=== PATIENT | male | born 1945 | race Caucasian/White ===

== ENCOUNTER 2016-12-01 13:55 | Emergency (ER) | payer OTHER, MEDICARE ==
[~2016-12-01] VITALS: Ht 190.5 cm; Wt 110.0 kg
[~2016-12-01 13:55] MED LIST: ALLOPURINOL300 MG PO; AMLODIPINE5 MG PO; ANTIVERT PO; CIPROFLOXACN500 MG PO; CLONIDINE0.1 MG PO; FLOMAX0.4 M1 PO; FLUOXETINE10 MG PO; FUROSEMIDE20 MG PO; GABAPENTIN300 MG PO; HEPARIN SC; HYDRALAZINE25 MG PO; HYDROCHLORO25 MG/TAB PO; HYDROCODONE/ACETAMIN PO; ISOSORB MONO60 M1 PO; ISOSORB MONO60 MG PO; LEVEMIR1000 UNITS SC; LIPITOR40 MG PO; LOSARTAN POT50 MG PO; MIRTAZAPINE15 MG PO; NOVOLIN N1000 UNITS SC; NOVOLIN R SC; NOVOLOG100 IU/1 M SC; OMEPRAZOLE20 MG PO; ONDANSETRON4 MG PO; PYRIDIUM200 MG PO; RANOLAZINE PO; TOPROL XL PO; [UNRECOGNIZED DRUG - REMARK]; catapres PO
[2016-12-01] MEDS ORDERED: TRAMADOL HYDROC50 MG PO (15:34)
[2016-12-01] MEDS ORDERED: EC-NAPROSYN500 MG PO (15:34)
[2016-12-01 15:40] VITALS: BP 130/70
== END 2016-12-01 15:55 | disposition home or self-care (01) | DRG 605 ==
LOC: ED 13:55
DX: S70.11XA Contusion of right thigh, initial encounter (principal); S70.311A Abrasion, right thigh, initial encounter; W13.3XXA Fall through floor, initial encounter; Y93.89 Activity, other specified; Y92.008 Other place in unspecified non-institutional (private) residence as the place of occurrence of the external cause

== ENCOUNTER 2017-07-23 17:43 | Emergency (ER) | payer OTHER, MEDICARE ==
[~2017-07-23] VITALS: Ht 190.5 cm; Wt 100.0 kg
[~2017-07-23 17:43] MED LIST changes: +EC-NAPROSYN500 MG PO; +TRAMADOL HYDROC50 MG PO
[2017-07-23 18:12] LABS: IMMATURE GRANULOCYTES 1.3 % (0.0-1.0); MEAN CELL VOLUME 88.2 fL CALC (80.0-100.0); MEAN CORPUSCULAR HGB CONC 32.9 g/L CALC (32.0-36.0); NEUT# 3.81 thou/uL (1.82-7.42); RED BLOOD COUNT 3.89 mill/uL (4.70-6.10); RED CELL DISTRI WIDTH 13.9 % (11.5-15.5)
[2017-07-23 18:13] LABS: HEMATOCRIT 34.3 % (39.0-50.0); HEMOGLOBIN 11.3 g/dl (14.0-18.0)
[2017-07-23 18:26] LABS: ALBUMIN 3.8 g/dL (3.2-5.0); BILIRUBIN, TOTAL 0.6 mg/dL (0.0-1.4); CREATININE 1.5 mg/dL (0.7-1.3); POTASSIUM 5.3 mmol/l (3.5-5.1); TOTAL PROTEIN 7.7 g/dL (6.3-8.2)
[2017-07-23 21:00] VITALS: BP 155/71
== END 2017-07-23 21:10 | DRG 84 ==
LOC: ED 17:43
PROVIDERS: Emergency Medicine
DX: S06.5X9A Traumatic subdural hemorrhage with loss of consciousness of unspecified duration, initial encounter (principal); S01.01XA Laceration without foreign body of scalp, initial encounter; I10 Essential (primary) hypertension; W19.XXXA Unspecified fall, initial encounter; Y92.242 Post office as the place of occurrence of the external cause; Z95.1 Presence of aortocoronary bypass graft; Z85.118 Personal history of other malignant neoplasm of bronchus and lung

== ENCOUNTER 2017-08-07 10:19 | Emergency (ER) | payer OTHER, MEDICARE ==
[~2017-08-07] VITALS: Ht 190.5 cm; Wt 109.0 kg
[2017-08-07 10:36] VITALS: BP 164/77
== END 2017-08-07 10:44 | disposition home or self-care (01) | DRG 950 ==
LOC: ED 10:19
DX: S01.00XD Unspecified open wound of scalp, subsequent encounter (principal); I10 Essential (primary) hypertension; X58.XXXD Exposure to other specified factors, subsequent encounter; Z95.1 Presence of aortocoronary bypass graft; Z85.118 Personal history of other malignant neoplasm of bronchus and lung

== ENCOUNTER 2019-08-19 08:44 | Emergency (ER) | payer OTHER, MEDICARE ==
[~2019-08-19 08:44] MED LIST changes: -FLUOXETINE10 MG PO; +FLUOXETINE20 MG PO
[2019-08-19] MEDS ORDERED: FINASTERIDE5 MG PO (08:53)
[2019-08-19] MEDS ORDERED: CARVEDILOL6.25 MG PO (08:55)
[2019-08-19] MEDS ORDERED: BACLOFEN10 MG PO (08:56)
[2019-08-19] MEDS ORDERED: ALLOPURINOL300 MG PO (08:57)
[2019-08-19 09:42] LABS: CREATININE 1.9 mg/dL (0.7-1.3)
[2019-08-19 09:44] LABS: HEMATOCRIT 35.9 % (39.0-50.0); HEMOGLOBIN 11.5 g/dl (14.0-18.0); IMMATURE GRANULOCYTES 0.8 % (0.0-5.0); MEAN CELL VOLUME 89.8 fL CALC (80.0-100.0); MEAN CORPUSCULAR HGB 28.8 pG CALC (26.0-32.0); NEUT# 5.03 thou/uL (1.82-7.42); POTASSIUM 4.1 mmol/l (3.5-5.1); RED CELL DISTRI WIDTH 14.7 % (11.5-15.5)
[2019-08-19] MEDS ORDERED: HYDROCO/APAP1 TA9 PO ×2 (12:50)
[2019-08-19] MEDS ORDERED: CEPHALEXIN500 M1 PO (13:06)
[2019-08-19 13:24] VITALS: BP 193/93
== END 2019-08-19 13:24 | disposition home or self-care (01) | DRG 563 ==
LOC: ED 08:44
PROVIDERS: Family Medicine
PROC: 0SSQXZZ Reposition Left Toe Phalangeal Joint, External Approach (ICD-10-PCS; principal; 2019-08-19)
DX: S93.115A Dislocation of interphalangeal joint of left lesser toe(s), initial encounter (principal); S92.252A Displaced fracture of navicular [scaphoid] of left foot, initial encounter for closed fracture; S92.222A Displaced fracture of lateral cuneiform of left foot, initial encounter for closed fracture; S92.412A Displaced fracture of proximal phalanx of left great toe, initial encounter for closed fracture; L03.116 Cellulitis of left lower limb; M25.461 Effusion, right knee; E11.9 Type 2 diabetes mellitus without complications; I10 Essential (primary) hypertension; W01.0XXA Fall on same level from slipping, tripping and stumbling without subsequent striking against object, initial encounter; Y92.002 Bathroom of unspecified non-institutional (private) residence as the place of occurrence of the external cause; Z79.4 Long term (current) use of insulin

== ENCOUNTER 2019-10-25 21:24 | Inpatient (IN) | payer OTHER, MEDICARE ==
[~2019-10-25] VITALS: Ht 182.9 cm; Wt 94.1 kg
[~2019-10-25 21:24] MED LIST changes: +BACLOFEN10 MG PO; +CARVEDILOL6.25 MG PO; +CEPHALEXIN500 M1 PO; +FINASTERIDE5 MG PO; +HYDROCO/APAP1 TA9 PO
[2019-10-25 22:02] LABS: HEMATOCRIT 40.6 % (39.0-50.0); HEMOGLOBIN 12.9 g/dl (14.0-18.0); IMMATURE GRANULOCYTES 0.3 % (0.0-5.0); MEAN CELL VOLUME 89.6 fL CALC (80.0-100.0); MEAN CORPUSCULAR HGB 28.5 pG CALC (26.0-32.0); MEAN CORPUSCULAR HGB CONC 31.8 g/dL CAL (32.0-36.0); NEUT# 3.94 thou/uL (1.82-7.42); RED BLOOD COUNT 4.53 mill/uL (4.70-6.10); RED CELL DISTRI WIDTH 15.5 % (11.5-15.5)
[2019-10-25 22:20] LABS: ALBUMIN 3.8 g/dL (3.2-5.0); BILIRUBIN, TOTAL 0.5 mg/dL (0.0-1.4); POTASSIUM 5.1 mmol/l (3.5-5.1); TOTAL PROTEIN 6.8 g/dL (6.3-8.2)
[2019-10-25 22:22] LABS: ACT PARTIAL THROMBO TIME 23.7 SECONDS (20.0-32.5); INTERNATIONAL NORMALIZED RATIO 1.1 RATIO (0.7-1.3); PROTHROMBIN TIME 11.1 SECONDS (9.0-12.5)
[2019-10-26] VITALS (29 sets, daily range): BP systolic 121–215; BP diastolic 60–139
[2019-10-26 03:05] LABS: HEMATOCRIT 40.1 % (39.0-50.0); HEMOGLOBIN 12.6 g/dl (14.0-18.0); IMMATURE GRANULOCYTES 0.3 % (0.0-5.0); MEAN CELL VOLUME 90.1 fL CALC (80.0-100.0); MEAN CORPUSCULAR HGB 28.3 pG CALC (26.0-32.0); MEAN CORPUSCULAR HGB CONC 31.4 g/dL CAL (32.0-36.0); NEUT# 3.72 thou/uL (1.82-7.42); RED BLOOD COUNT 4.45 mill/uL (4.70-6.10); RED CELL DISTRI WIDTH 15.5 % (11.5-15.5)
[2019-10-26 03:29] LABS: ALBUMIN 3.5 g/dL (3.2-5.0); BILIRUBIN, TOTAL 0.3 mg/dL (0.0-1.4); CREATININE 1.8 mg/dL (0.7-1.3); POTASSIUM 4.5 mmol/l (3.5-5.1); TOTAL PROTEIN 6.5 g/dL (6.3-8.2)
[2019-10-26] MEDS ORDERED: ISOSORB MONO60 M1 PO (14:06)
[2019-10-26] MEDS ORDERED: PRAVASTATIN80 MG PO (14:07)
[2019-10-26] MEDS ORDERED: OMEPRAZOLE DR20 MG PO (14:07)
[2019-10-26] MEDS ORDERED: CLONIDINE0.2 MG PO (14:09)
[2019-10-26] MEDS ORDERED: RANOLAZINE ER500 MG PO (14:10)
[2019-10-26] MEDS ORDERED: PROZAC20 M1 PO (14:12)
[2019-10-26] MEDS ORDERED: TAMSULOSIN0.4 MG PO (14:13)
[2019-10-26] MEDS ORDERED: ATORVASTATIN CA80 MG PO (14:14)
[2019-10-26] MEDS ORDERED: LOSARTAN POTAS100 MG PO (14:15)
[2019-10-26] MEDS ORDERED: FINASTERIDE5 MG PO (14:15)
[2019-10-26] MEDS ORDERED: COREG12.5 MG PO (14:16)
[2019-10-26] MEDS ORDERED: ZYLOPRIM300 MG PO (14:22)
[2019-10-26] MEDS ORDERED: NORVASC10 M1 PO (14:23)
[2019-10-26] MEDS ORDERED: ASPIRIN 8181 MG PO (14:50)
[2019-10-27] VITALS (27 sets, daily range): BP systolic 118–199; BP diastolic 62–102
[2019-10-27 10:42] LABS: URINE BILIRUBIN - DIPSTICK NEGATIVE (NEGATIVE); URINE BLOOD DIPSTICK NEGATIVE (NEGATIVE); URINE COLOR YELLOW; URINE GLUCOSE - DIPSTICK 250 mg/dL (NEGATIVE); URINE KETONE TRACE mg/dL (NEGATIVE); URINE LEUK ESTERASE NEGATIVE (NEGATIVE); URINE NITRITE - DIPSTICK NEGATIVE (Negative); URINE PROTEIN - DIPSTICK 100 mg/dL (NEG-TRACE); URINE UROBILINOGEN - DIPSTICK 0.2 E.U./dL (0.2)
[2019-10-27 10:52] LABS: URINE EPITHELIAL CELLS FEW EPI/hpf (0-FEW); URINE MUCUS MODERATE hpf (NONE-FEW)
[2019-10-28 00:05] VITALS: BP 154/83
[2019-10-28 04:08] VITALS: BP 151/82
[2019-10-28 05:32] LABS: HEMATOCRIT 37.3 % (39.0-50.0); HEMOGLOBIN 11.6 g/dl (14.0-18.0); IMMATURE GRANULOCYTES 0.3 % (0.0-5.0); MEAN CELL VOLUME 90.1 fL CALC (80.0-100.0); MEAN CORPUSCULAR HGB CONC 31.1 g/dL CAL (32.0-36.0); NEUT# 3.6 thou/uL (1.82-7.42); RED BLOOD COUNT 4.14 mill/uL (4.70-6.10); RED CELL DISTRI WIDTH 15.6 % (11.5-15.5)
[2019-10-28 08:50] VITALS: BP 168/86
[2019-10-28 11:00] VITALS: BP 146/71
[2019-10-28] MEDS ORDERED: TAMSULOSIN0.4 MG PO (11:57)
[2019-10-28] MEDS ORDERED: ATORVASTATIN CA80 MG PO (11:57)
[2019-10-28] MEDS ORDERED: RANOLAZINE ER500 MG PO (11:57)
[2019-10-28] MEDS ORDERED: NORVASC10 M1 PO ×2 (11:58)
[2019-10-28] MEDS ORDERED: ISOSORB MONO60 M1 PO (11:58)
[2019-10-28] MEDS ORDERED: ASPIRIN 8181 MG PO (11:58)
[2019-10-28] MEDS ORDERED: FINASTERIDE5 MG PO (11:59)
[2019-10-28] MEDS ORDERED: PROZAC20 M1 PO (11:59)
[2019-10-28] MEDS ORDERED: OMEPRAZOLE DR20 MG PO (11:59)
[2019-10-28] MEDS ORDERED: ZYLOPRIM300 MG PO (11:59)
[2019-10-28] MEDS ORDERED: AMLODIPINE BESYL5 MG PO (12:16)
[2019-10-28] MEDS ORDERED: LOSARTAN POTAS100 MG PO (12:16)
[2019-10-28] MEDS ORDERED: APRESOLINE25 MG/TAB PO (12:16)
[2019-10-28] MEDS ORDERED: COREG12.5 MG PO (12:16)
[2019-10-28] MEDS ORDERED: CLONIDINE0.2 MG PO (12:16)
[2019-10-28 14:32] VITALS: BP 146/71
== END 2019-10-28 13:44 | disposition home or self-care (01) | DRG 305 ==
LOC: ED 21:24 → ED-I 23:04 → ED 23:23 → ICU 23:24 → MS2 10-27 17:10
PROVIDERS: ADMIT Internal Medicine; ATTEND Internal Medicine
DX: I16.0 Hypertensive urgency (principal); N17.9 Acute kidney failure, unspecified; I12.9 Hypertensive chronic kidney disease with stage 1 through stage 4 chronic kidney disease, or unspecified chronic kidney disease; E11.22 Type 2 diabetes mellitus with diabetic chronic kidney disease; N18.3 Chronic kidney disease, stage 3 (moderate); I49.3 Ventricular premature depolarization; I25.10 Atherosclerotic heart disease of native coronary artery without angina pectoris; S92.902D Unspecified fracture of left foot, subsequent encounter for fracture with routine healing; I25.2 Old myocardial infarction; T46.5X6A Underdosing of other antihypertensive drugs, initial encounter; X58.XXXD Exposure to other specified factors, subsequent encounter; Z91.128 Patient's intentional underdosing of medication regimen for other reason; Z90.2 Acquired absence of lung [part of]; Z91.81 History of falling; Z87.891 Personal history of nicotine dependence; Z79.4 Long term (current) use of insulin; Z85.118 Personal history of other malignant neoplasm of bronchus and lung; Z95.1 Presence of aortocoronary bypass graft; Z20.828 Contact with and (suspected) exposure to other viral communicable diseases
CPT/HCPCS: J1650

== ENCOUNTER 2019-11-09 05:45 | Observation (INO) | payer OTHER, MEDICARE ==
[~2019-11-09] VITALS: Ht 190.5 cm; Wt 99.3 kg
[~2019-11-09 05:45] MED LIST changes: +AMLODIPINE BESYL5 MG PO; +APRESOLINE25 MG/TAB PO; +ASPIRIN 8181 MG PO; +ATORVASTATIN CA80 MG PO; +CLONIDINE0.2 MG PO; +COREG12.5 MG PO; +LOSARTAN POTAS100 MG PO; +NORVASC10 M1 PO; +OMEPRAZOLE DR20 MG PO; +PRAVASTATIN80 MG PO; +PROZAC20 M1 PO; +RANOLAZINE ER500 MG PO; +TAMSULOSIN0.4 MG PO; +ZYLOPRIM300 MG PO
--- NOTE | 2019-11-09 07:00 | NUR ---
REPORT RECIEVED FROM MARCEL RN; PT RESTING ON STRETCHER; DENIES ANY PAIN OR DISCOMFORT AT THIS TIME; PT ADVISED OF POC AND WAIT TIME; VSS; WILL CONTINUE TO MONITOR
--- NOTE | 2019-11-09 07:20 | NUR ---
DR BAEZ AT BEDSIDE; REDUCTION OF LEFT SECOND TOE; LACERATION REPAIN TO FOURTH LEFT TOE; PT TOLERATED WELL; DRESSSING APPLIEED; GURROLA BOOT APPLIED; PT UNABLE TO BARE WEIGHT; PT ADVISED ON PENDING ADMISSION
--- NOTE | 2019-11-09 08:20 | NUR ---
PT RESTING ON STRETCHER; NO S/S OF DISTRESS NOTED; PT ADVISED OF CONTINUED WAIT TIME; VSS; WILL CONTINUE TO MONITOR
--- NOTE | 2019-11-09 09:20 | NUR ---
PT RESTING ON STRETCHER; NO S/S OF DISTRESS NOTED; WILL CONTINUE TO MONITOR
[2019-11-09 09:26] LABS: HEMOGLOBIN 11.9 g/dl (14.0-18.0); IMMATURE GRANULOCYTES 0.5 % (0.0-5.0); MEAN CELL VOLUME 88.9 fL CALC (80.0-100.0); MEAN CORPUSCULAR HGB 28.6 pG CALC (26.0-32.0); MEAN CORPUSCULAR HGB CONC 32.2 g/dL CAL (32.0-36.0); NEUT# 3.49 thou/uL (1.82-7.42); RED BLOOD COUNT 4.16 mill/uL (4.70-6.10); RED CELL DISTRI WIDTH 14.7 % (11.5-15.5)
[2019-11-09] MEDS ORDERED: NOVOLIN R100 UNIT/1 IN (09:42)
--- NOTE | 2019-11-09 10:20 | NUR ---
PT RESTING ON STRETCHER; NO S/S OF DISTRESS NOTED; ADVISED OF CONTINUED WAIT TIME; WILL CONTINUE TO MONITOR
--- NOTE | 2019-11-09 10:30 | NUR ---
REPORT REC FROM LONNIE LOERA
--- NOTE | 2019-11-09 10:43 | NUR ---
PT ARRIVED VIA STRETCHER ACCOMPANIED BY LONNIE LOERA. PT A&O X3. NO DISTRESS NOTED. BOOT IN PLACE TO LT LEG. LT FLANK/HIP BRUISING NOTED. PER CONVERSATION PT LIVES ALONE AND HAS HAD MULTIPLE FALLS SINCE LAST D/C [facility]. [facility] BUT REPORTS TO NEVER HAVE BEEN ESTABLISHED. PT REPORTS PAIN 7/10 WHEN MOVING OR WHEN WEIGHT IS PLACED WITH LT LEG. ORIENTED PT TO ROOM. URINAL SET AT BEDSIDE. ASSESSMENT COMPLETED. CALL LIGHT IN REACH. CONTINUE TO MONITOR.
--- NOTE | 2019-11-09 10:45 | NUR ---
Admission Note Report Given to: TED BERG Transported by: Wheelchair X Stretcher Transported with: X Nurse Transporter X Patent IV O2 Dust Control Engineer Location: ICU X MS2
[2019-11-09 15:00] VITALS: BP 161/81
[2019-11-09 17:00] LABS: INTERNATIONAL NORMALIZED RATIO 1.1 RATIO (0.7-1.3); PROTHROMBIN TIME 10.7 SECONDS (9.0-12.5)
--- NOTE | 2019-11-09 17:28 | NUR ---
PT SITTING IN BED EATING DINNER, STATES PAIN IS MINIMAL AT THIS TIME AND DOES NOT NEED ANYTHING FOR PAIN. CALL LIGHT IN REACH. CONTINUE TO MONITOR.
[2019-11-09 19:10] VITALS: BP 166/75
--- NOTE | 2019-11-09 20:10 | NUR ---
PT RESTING IN BED, NO SIGNS OF DISTRESS NOTED, RESP EVEN AND UNLABORED. PT ALERT AND ORIENTED X3, DISCUSSED POC, PT ONLY C/O AT THIS TIME. IS HEARTBURN. PT MEDICATED WITH MYLANTA. DRESSING TO LLE CDI, TOES ARE PINK,WARM AND CAPILLARY REFILL SLUGGISH BUT PRESENT. ASSESSMENT COMPLETED, CALL LIGHT IN REACH,CONTINUE TO MONITOR.
[2019-11-09 23:35] VITALS: BP 140/75
--- NOTE | 2019-11-10 00:01 | NUR ---
PT RESTING IN BED, NO SIGNS OF DISTRESS NOTED, RESP EVEN AND UNLABORED. PT WATCHING TV, VOICES NO NEEDS OR COMPLAINTS AT THIS TIME. CALL LIGHT IN REACH,CONTINUE TO MONITOR.
[2019-11-10 05:30] VITALS: BP 154/79
[2019-11-10 05:33] VITALS: BP 142/72
--- NOTE | 2019-11-10 06:18 | NUR ---
PT RESTING IN BED, NO SIGNS OF DISTRESS NOTED, RESP EVEN AND UNLABORED, CALL LIGHT IN REACH,CONTINUE TO MONITOR.
[2019-11-10 07:15] VITALS: BP 170/71
--- NOTE | 2019-11-10 07:15 | NUR ---
PT LAYING IN BED. A&O X3. NO DISTRESS NOTED. PT REPORTS PAIN 5/10. LT FOOT INSPECTED AND CIRCULATION ASSESSED, NO CYANOSIS NOTED. LT LEG ELEVATED ON PILLOW. NO OTHER NEEDS AT THIS TIME. ASSESSMENT COMPLETED. DISCUSSED POC. CALL LIGHT IN REACH. CONTINUE TO MONITOR.
[2019-11-10 11:09] VITALS: BP 147/77
--- NOTE | 2019-11-10 11:11 | NUR ---
PT WAS SEEN TODAY FOR GT. HE WAS INDEP ON TRANSITIONING FROM SUPINE TO SITTING ON EDGE OF BED WITH MODERATE DIFFICULTY. PT WAS GIVEN INSTRUCTIONS AND CGA TO SIT>STAND WHILE HOLDING ONTO BED RAIL THEN ONTO THE WALKER. HE THEN AMBULATED FROM ONE SIDE OF THE BED TO THE OTHER WITH ANKLE BOOT ON THE LEFT AND A RW. PT REPORTED INTOLERANCE TO AMB AND REQUESTED TO SIT DOWN. AFTERWARDS, PT BEGAN VOMITTING LIQUID HOWEVER, DENIES DIZZINESS OR LIGHT-HEADEDNESS. VS WERE WNL. PT REPORTS FEELING BETTER AND REQUESTED TO RETURN TO BED. HIS AMPAC SCORE IS UNCHANGED AND WILL STILL BENEFIT FROM ECF OR IPT DUE TO HIGH RISK FOR FALLS AND LIMITED FUNCTIONAL INDEPENDENCE. PT WAS STABLE AND RESTING HOOK LYING ON BED WHEN THERAPIST LEFT. NO ADVERSE REACTIONS REPORTED.
--- NOTE | 2019-11-10 11:40 | NUR ---
PT REORTS NAUSEA AND REQUESTS PRN ANTIEMETIC, PT MEDICATED WITH PRN ZOFRAN 4MG IVP AT THIS TIME;WILL CONTINUE TO MONITOR FOR EFFECTIVENESS
--- NOTE | 2019-11-10 12:26 | NUR ---
PT SITTING IN RECLINER. NO DISTRESS OR NEEDS AT THIS TIME. CALL LOGHT IN REACH. CONTINUE TO MONITOR.
[2019-11-10 15:10] VITALS: BP 131/76
[2019-11-10 19:19] VITALS: BP 123/70
--- NOTE | 2019-11-10 21:00 | NUR ---
PT RESTING IN BED. PHYSICAL ASSESMENT COMPLETE. REPORTS PAIN TO L FOOT 10, PRN ULTRAM ADMINISTERED. SCHEDULED MEDICATIONS ADMINISTERED. SEE E-MAR. PLAN OF CARE REVIEWED. PT VERBALIZES UNDERSTANDING AND DENIES QUESTIONS. PT DENIES FURTHER NEEDS AT THIS TIME. CALL ROONEY WITHIN REACH, AGREES TO CALL PRN.
--- NOTE | 2019-11-10 21:30 | NUR ---
ASSITED PT UP TO BSC, PT PASSED EXTRA-LARGE SOLID BM, ASSISTED BACK TO BED BY Lawrence VAZQUEZ CNA. CALL ROONEY WITHIN REACH, AGREES TO CALL PRN.
--- NOTE | 2019-11-10 22:45 | NUR ---
PT ASSISTED UP TO BSC BY Lawrence HERNADEZA, PASSED LARGE SOFT STOOL, ASSISTED BACK TO BED BY Lawrence HERNADEZA. CALL ROONEY WITHIN REACH, AGREES TO CALL PRN.
--- NOTE | 2019-11-10 23:26 | NUR ---
PT ASSISTED UP TO BSC, PT PASSED MODERATE AMOUNT LIQUID STOOL, BUTTOCKS IS BECOMING REDDENED, SKIN BLANCHABLE AND INTACT. PT ASSISTED BACK TO BED. CALL ROONEY WITHIN REACH, AGREES TO CALL PRN.
--- NOTE | 2019-11-11 00:35 | NUR ---
PT LAYING IN BED, APPAERS TO BE SLEEPING COMFORTABLY, NO APPARENT DISTRESS. RESPIRATIONS REGULAR AND UNLABORED. CALL ROONEY REMAINS WITHIN REACH.
[2019-11-11 04:05] VITALS: BP 149/74
[2019-11-11 04:37] LABS: HEMATOCRIT 34.6 % (39.0-50.0); HEMOGLOBIN 10.9 g/dl (14.0-18.0); MEAN CELL VOLUME 89.9 fL CALC (80.0-100.0); MEAN CORPUSCULAR HGB 28.3 pG CALC (26.0-32.0); MEAN CORPUSCULAR HGB CONC 31.5 g/dL CAL (32.0-36.0); RED BLOOD COUNT 3.85 mill/uL (4.70-6.10); RED CELL DISTRI WIDTH 15.2 % (11.5-15.5)
[2019-11-11 05:02] LABS: CREATININE 1.9 mg/dL (0.7-1.3); MAGNESIUM 2.4 mg/dL (1.6-2.3)
[2019-11-11 05:09] LABS: POTASSIUM 5.8 mmol/l (3.5-5.1)
[2019-11-11 07:39] VITALS: BP 157/83
--- NOTE | 2019-11-11 07:39 | NUR ---
PT SITTING IN BED. A&O X3. NO DISTRESS NOTED. PT DENIES ANY PAIN AT THIS TIME. CIRCULATION TO TOES ASSESSED, NO CYANOSIS. NO OTHER NEEDS AT THIS TIME. ASSESSMENT COMPLETED AT THIS TIME. DISCUSSED POC. CALL LIGHT IN REACH .CONTINUE TO MONITOR.
[2019-11-11 09:10] VITALS: BP 157/83
--- NOTE | 2019-11-11 10:03 | NUR ---
PT NOTE Pt was supine in bed as entered room. Pt agreed to participate in therapy session. Supine>sit independent using hand rails to propell self to a seated position. Static sitting balance executes well, no dizziness noted as he was moved into a seated position. Sit>stand independent, VC for correct hand placement as he ascends to a standing posistion. Staic standing balance adequate, no LOB noted, slight dizziness. Pt. sat down for a min, dizziness subsided, executed 5 sit>stands, no dizziness noted. weight shifting pt executed well. Stand> sit independnt, sit>supine MIN A w/ lower extremity over bed side. AMPAC 6 score unchanged 15. call mónica vyas by pt. side as exited room.
[2019-11-11] MEDS ORDERED: KAYEXALATE15 GM/60 M PO (11:32)
[2019-11-11] MEDS ORDERED: ULTRAM50 MG PO (11:32)
--- NOTE | 2019-11-11 11:55 | NUR ---
Pt refused therapy due to being tired and feeling nauseous.
--- NOTE | 2019-11-11 13:54 | NUR ---
Discharge instructions given. Patient verbalizes understanding of same. [facility] All belongings sent with pt.
--- NOTE | 2019-11-11 14:49 | NUR ---
CALLED [facility] WITH ATTEMPT TO GIVE REPORT, CALL BACK INFORMATION GIVEN TO CENTRALIZED TRAFFIC CONTROL OPERATOR STAFF, ACCEPTING NURSE TO CALL BACK.
== END 2019-11-11 13:54 | DRG 566 ==
LOC: ED 06:07 → MS2 08:05 → ED-I 08:05 → MS2 11-11 13:54
PROVIDERS: Family Medicine; Nurse Practitioner; ADMIT Internal Medicine; ATTEND Internal Medicine
PROC: 0HQNXZZ Repair Left Foot Skin, External Approach (ICD-10-PCS; principal; 2019-11-09)
DX: M23.52 Chronic instability of knee, left knee (principal); M17.12 Unilateral primary osteoarthritis, left knee; R26.89 Other abnormalities of gait and mobility; S91.115A Laceration without foreign body of left lesser toe(s) without damage to nail, initial encounter; S92.412A Displaced fracture of proximal phalanx of left great toe, initial encounter for closed fracture; S92.512A Displaced fracture of proximal phalanx of left lesser toe(s), initial encounter for closed fracture; I16.0 Hypertensive urgency; I12.9 Hypertensive chronic kidney disease with stage 1 through stage 4 chronic kidney disease, or unspecified chronic kidney disease; E11.22 Type 2 diabetes mellitus with diabetic chronic kidney disease; N18.9 Chronic kidney disease, unspecified; I25.10 Atherosclerotic heart disease of native coronary artery without angina pectoris; E87.5 Hyperkalemia; W18.30XA Fall on same level, unspecified, initial encounter; Y92.009 Unspecified place in unspecified non-institutional (private) residence as the place of occurrence of the external cause; Z91.81 History of falling; Z85.118 Personal history of other malignant neoplasm of bronchus and lung; Z87.891 Personal history of nicotine dependence; Z90.2 Acquired absence of lung [part of]; Z95.1 Presence of aortocoronary bypass graft; Z79.4 Long term (current) use of insulin; Z20.828 Contact with and (suspected) exposure to other viral communicable diseases
CPT/HCPCS: G0378; J1650

== ENCOUNTER 2020-05-17 12:54 | Observation (INO) | payer OTHER, MEDICARE ==
[~2020-05-17] VITALS: Ht 190.5 cm; Wt 92.0 kg
[~2020-05-17 12:54] MED LIST changes: +KAYEXALATE15 GM/60 M PO; +NOVOLIN R100 UNIT/1 IN; +ULTRAM50 MG PO
--- NOTE | 2020-05-17 12:54 | NUR ---
PT TO ROOM 15 VIA EMS. BEDSIDE TRIAGE COMPLETED
[2020-05-17 13:42] LABS: HEMATOCRIT 34.2 % (39.0-50.0); HEMOGLOBIN 10.9 g/dl (14.0-18.0); IMMATURE GRANULOCYTES 0.5 % (0.0-5.0); MEAN CELL VOLUME 92.4 fL CALC (80.0-100.0); MEAN CORPUSCULAR HGB 29.5 pG CALC (26.0-32.0); MEAN CORPUSCULAR HGB CONC 31.9 g/dL CAL (32.0-36.0); NEUT# 4.45 thou/uL (1.82-7.42); RED BLOOD COUNT 3.7 mill/uL (4.70-6.10); RED CELL DISTRI WIDTH 14.2 % (11.5-15.5)
[2020-05-17 13:54] LABS: ALBUMIN 3.5 g/dL (3.2-5.0); ALKALINE PHOSPHATASE 95 u/l (38-126); AMYLASE 43 u/l (30-110); BUN 27 mg/dL (8-23); BUN/CREATININE RATIO 20 (12-20 (CALC)); CHLORIDE 99 mmol/l (95-108); CREATININE 1.4 mg/dL (0.7-1.3); GFR 50 ML/MIN (>=60 (CALC)); GFR FOR AFR.AMER. 60 ML/MIN (>=60 (CALC)); LIPASE 27 u/l (23-300); SGOT/AST 13 u/l (19-48); SODIUM 134 mmol/l (137-146); TOTAL PROTEIN 6.5 g/dL (6.3-8.2)
[2020-05-17 13:55] LABS: URINE BILIRUBIN - DIPSTICK NEGATIVE (NEGATIVE); URINE BLOOD DIPSTICK NEGATIVE (NEGATIVE); URINE COLOR YELLOW; URINE GLUCOSE - DIPSTICK NEGATIVE (NEGATIVE); URINE KETONE NEGATIVE (NEGATIVE); URINE LEUK ESTERASE NEGATIVE (NEGATIVE); URINE NITRITE - DIPSTICK NEGATIVE (Negative); URINE PROTEIN - DIPSTICK 100 mg/dL (NEG-TRACE); URINE UROBILINOGEN - DIPSTICK 0.2 E.U./dL (0.2)
[2020-05-17 13:57] LABS: URINE EPITHELIAL CELLS FEW EPI/hpf (0-FEW); URINE MUCUS MODERATE hpf (NONE-FEW)
--- NOTE | 2020-05-17 14:00 | NUR ---
ATTENPTED TO OBTAIN MED RECONCILIATION. PATIENT STATES I TAKE ALOT OF MEDS BUT HAVE NO IDEA WHAT. PHARMACY CONSULT IN
[2020-05-17 14:09] LABS: D-DIMER 0.61 mg/L (0.19-0.60)
[2020-05-17 14:10] LABS: ANION GAP 10 (6-22 (CALC)); BILIRUBIN, TOTAL 0.6 mg/dL (0.0-1.4); CARBON DIOXIDE 29 mmol/l (22-30); POTASSIUM 4.2 mmol/l (3.5-5.1)
[2020-05-17 14:20] LABS: ACT PARTIAL THROMBO TIME 24.3 SECONDS (20.0-32.5); INTERNATIONAL NORMALIZED RATIO 1.1 RATIO (0.7-1.3)
--- NOTE | 2020-05-17 15:00 | NUR ---
PATIENT RESTING,NO DISTRESS, CALL ROONEY IN REACH
--- NOTE | 2020-05-17 15:44 | NUR ---
REPOSITIONED,AWARE OF PENDING ADMISSION.
--- NOTE | 2020-05-17 17:16 | NUR ---
REPORT CALLED TO TAWNY IN SBAR FORMAT RECEIVING NURSE.
--- NOTE | 2020-05-17 17:27 | NUR ---
TRANSFERRED TO ROOM 269. STABLE UPON TRANSFER.
[2020-05-17 17:39] VITALS: BP 205/80
--- NOTE | 2020-05-17 18:14 | NUR ---
PT ARRIVED TO MED-SURG ROOM#269 VIA STRETCHER IN STABLE CONDITION ACCOMPANIED BY NURSE PEÑA;PT AMBULATED TO BED WITH MINIMAL ASSISTANCE;PT IS A&O X3;VS AND ASSESSMENT WERE COMPLETED;BP ON ARRIVAL TO FLOOR WAS 203/100;IGLESIA ISSA WAS NOTIFIED AND AWARE;#20G IV IN LH IS SL, PATENT AND FREE OF COMPLICATIONS;HEART SOUNDS ARE REGULAR IN RATE AND RHYTHM;TELE IS IN PLACE READING SR @84BPM;LUNG SOUNDS ARE CLEAR;PT HAS HAD LEFT LUNG REMOVED;RESPIRATIONS ARE EVEN AND UNLABORED ON RA;FALL AND ALLERGY ARM BANDS WERE PLACED ON PT;PT ORIENTED TO CALL ROONEY AND ROOM;SAFETY PRECAUTIONS IN PLACE;CALL LIGHT WITHIN REACH;BED IN LOWEST POSITION;WILL CONTINUE TO MONITOR.
[2020-05-17 19:05] VITALS: BP 167/83
--- NOTE | 2020-05-17 19:45 | NUR ---
PT COMPLAINING OF CHEST PAIN, REPORTING IT IS MUSCULAR IN NATURE NOT CARDIAC. PT IS NEGATIVE FOR ANY CARDIAC SYMPTOMS AT THIS TIME. TELE 90'S SR WITH PVC. LINEN SORTER TOBACCO PACKING MACHINE OPERATOR, SATHISH DEL ANGEL, NOTIFIED OF CHEST PAIN AND THAT PT HAS ONLY TYLENOL NEEDED FOR PAIN AT THIS TIME. PER TOBACCO PACKING MACHINE OPERATOR SHE WILL REVIEW PT MEDICATIONS AND ADD NEW MEDICATIONS APPROPRIATE. WILL MONITOR.
[2020-05-17 20:58] VITALS: BP 169/88
--- NOTE | 2020-05-17 21:55 | NUR ---
ADMINSTERED FLEXERIL AND TYLENOL WITH HS MEDS. PT INDICATED THAT THE PAIN IS EASING OFF AND THAT THE PAIN IS MORE MANAGABLE AT THIS TIME. PT CONTINUES TO NOT SHOW ANY S/S OF CARDIAC COMPLICATIONS. BREATHING IS EVEN AND UNLABORED. CTA. L LUNG REMOVED SOME TIME AGO. UPON HEART AUSCULTATION NOTED A MURMUR AND A SLIGHT IRREGULARITY TO THE RHYTHM. PT INDICATED HE HAS HAD THE MURMUR AND IRREGULARITY FOR YEARS. TELE IS NOT PICKING UP HEART IRREGULARITY. WILL CONTINUE TO MONITOR. SAFETY PRECAUTIONS IN PLACE. BED IN LOWEST POSITION. CALL LIGHT WITHIN REACH.
[2020-05-17 22:05] VITALS: BP 182/97
--- NOTE | 2020-05-17 23:56 | NUR ---
PT IN BED WATCHING TELEVISION. IV APRESOLINE GIVEN FOR B/P 182/97. PT TOLERATED WELL. WILL MONITOR B/P THROUGHOUT THE SHIFT. SPOKE WITH RECTIFYING ATTENDANT WHO GAVE AN ORDER FOR APRESOLINE PARAMETERS. SAFETY PRECAUTIONS IN PLACE, BED IN LOW POSITION, CALL LIGHT WITHIN REACH.
[2020-05-18 00:10] VITALS: BP 175/87
--- NOTE | 2020-05-18 01:36 | NUR ---
PT REMAINS AWAKE IN HIS ROOM WATCHING TV. PT CALLED TO NURSING STATTION AT APPROXIMATLY 0120 AND STATED HE NEEDED HIS BLOOD SUGAR CHECK DONE, HE INDICATED HE WAS FEELING HYPOGLYCEMIC. BS CHECKED AND NOTED A BS OF 66. ASSIGNED TICKETING AGENT GAVE PT SOME ORANGE JUICE, WILL CHECK BS AGAIN THIS SHIFT FOR EFFECTIVENESS OF ORANGE JUICE.
[2020-05-18 04:05] VITALS: BP 169/81
--- NOTE | 2020-05-18 04:26 | NUR ---
PT LYING IN BED WITH EYES CLOSED. NO COMPLAINTS VOICED AT THIS TIME. BREATHING IS EVEN AND UNLABORED. NO S/S OF DISTRESS NOTED. SAFETY AND FALL PRECAUTIONS IN PLACE. WILL MONITOR.
[2020-05-18 06:08] LABS: HEMATOCRIT 36.5 % (39.0-50.0); IMMATURE GRANULOCYTES 0.2 % (0.0-5.0); MEAN CELL VOLUME 90.1 fL CALC (80.0-100.0); MEAN CORPUSCULAR HGB 29.6 pG CALC (26.0-32.0); MEAN CORPUSCULAR HGB CONC 32.9 g/dL CAL (32.0-36.0); NEUT# 4.74 thou/uL (1.82-7.42); RED BLOOD COUNT 4.05 mill/uL (4.70-6.10); RED CELL DISTRI WIDTH 13.9 % (11.5-15.5)
[2020-05-18 06:28] LABS: ALBUMIN 3.2 g/dL (3.2-5.0); ALKALINE PHOSPHATASE 100 u/l (38-126); ANION GAP 10 (6-22 (CALC)); BILIRUBIN, TOTAL 0.5 mg/dL (0.0-1.4); BUN 21 mg/dL (8-23); BUN/CREATININE RATIO 18 (12-20 (CALC)); CALCULATED LDLCHOLESTEROL 39 mg/dL (62-129 (CALC)); CARBON DIOXIDE 27 mmol/l (22-30); CHLORIDE 101 mmol/l (95-108); CHOLESTEROL HDL RATIO 2.9 (<4.4 (CALC)); CREATININE 1.1 mg/dL (0.7-1.3); GFR > 60 ML/MIN (>=60 (CALC)); GFR FOR AFR.AMER. > 60 ML/MIN (>=60 (CALC)); HDL CHOLESTEROL 36 mg/dL (>=40); MAGNESIUM 1.9 mg/dL (1.6-2.3); SGOT/AST 13 u/l (19-48); SODIUM 135 mmol/l (137-146); TOTAL CHOLESTEROL 104 mg/dl (0-199); TOTAL PROTEIN 6.1 g/dL (6.3-8.2); TOTAL TRIGLYCERIDES 148 mg/dl (30-149); VLDL CHOLESTROL 30 mg/dl (0-38 (CALC))
[2020-05-18 07:27] VITALS: BP 160/88
--- NOTE | 2020-05-18 07:38 | NUR ---
PATIENT LAYING IN BED ALERT AND ORIENTED X 3. DENIES ANY PAIN STATED PAIN WAS A 0 ON SCALE OF 1-10 PATIENT BP AT THIS TIME WAS 160/88 AND SCHEDULED MORNING BLOOD PRESSURE MEDICATIONS GIVEN EARLY SEE MAR. SIDERAILS ARE UP X 2 CALL LIGHT AND PERSONAL ITEMS WITHIN REACH. COFFERDAM CONSTRUCTION SUPERVISOR DONE SEE PROCESS INTERVENTIONS
--- NOTE | 2020-05-18 09:19 | NUR ---
CONSENT OBTAINED BY PATIENT TO GIVE FLUZONE HI-DOSE FLU SHOT. 0.7ML GIVEN AT THIS TIME IN RIGHT DELTOID. PATIENT EDUCATED ON FLU SHOT ADVERSE EFFECTS AND EDUCATION MATERIAL GIVEN AT THIS TIME PATIENT VERBALIZES UNDERSTANDING.
[2020-05-18] MEDS ORDERED: FLEXERIL5 MG PO (10:52)
[2020-05-18 10:56] VITALS: BP 162/87
--- NOTE | 2020-05-18 11:42 | NUR ---
PATIENT D/C AT THIS TIME. PATIENT VERBALIZES UNDERSTANDING OF D/C ORDERS. IV REMOVED AT THIS TIME TELE REMOVED ED NOTIFIED OF REMOVAL PATIENT D/C IN STABLE CONDITION.
--- NOTE | 2020-05-18 12:17 | NUR ---
Discharge instructions given. Patient verbalizes understanding of same. Discharged in stable condition via Wheelchair to Home with *Other. All belongings sent with pt.
== END 2020-05-18 12:12 | disposition home health service (06) | DRG 313 ==
LOC: ED 12:54 → ED-I 15:30 → ED 15:41 → MS2 15:42
PROVIDERS: Nurse Practitioner; ADMIT Internal Medicine; ATTEND Internal Medicine
DX: R07.89 Other chest pain (principal); N17.9 Acute kidney failure, unspecified; I25.10 Atherosclerotic heart disease of native coronary artery without angina pectoris; I12.9 Hypertensive chronic kidney disease with stage 1 through stage 4 chronic kidney disease, or unspecified chronic kidney disease; E11.22 Type 2 diabetes mellitus with diabetic chronic kidney disease; N18.30 Chronic kidney disease, stage 3 unspecified; N40.0 Benign prostatic hyperplasia without lower urinary tract symptoms; I25.2 Old myocardial infarction; Z23 Encounter for immunization; Z90.2 Acquired absence of lung [part of]; Z79.4 Long term (current) use of insulin; Z95.1 Presence of aortocoronary bypass graft; Z87.891 Personal history of nicotine dependence; Z85.118 Personal history of other malignant neoplasm of bronchus and lung; Z20.822 Contact with and (suspected) exposure to COVID-19
CPT/HCPCS: J1650

== ENCOUNTER 2020-07-28 08:14 | Inpatient (IN) | payer OTHER, MEDICARE ==
[~2020-07-28] VITALS: Ht 190.5 cm; Wt 86.6 kg
[2020-07-28] VITALS (12 sets, daily range): BP systolic 125–219; BP diastolic 88–119
[~2020-07-28 08:14] MED LIST changes: +FLEXERIL5 MG PO
--- NOTE | 2020-07-28 08:14 | NUR ---
PT ARRIVED BY EMS
[2020-07-28 08:45] LABS: HEMATOCRIT 38.9 % (39.0-50.0); HEMOGLOBIN 12.3 g/dl (14.0-18.0); IMMATURE GRANULOCYTES 0.3 % (0.0-5.0); MEAN CELL VOLUME 91.7 fL CALC (80.0-100.0); MEAN CORPUSCULAR HGB CONC 31.6 g/dL CAL (32.0-36.0); NEUT# 4.7 thou/uL (1.82-7.42); RED BLOOD COUNT 4.24 mill/uL (4.70-6.10); RED CELL DISTRI WIDTH 13.9 % (11.5-15.5)
[2020-07-28 08:59] LABS: D-DIMER 0.84 mg/L (0.19-0.60)
[2020-07-28 09:00] LABS: ALBUMIN 3.7 g/dL (3.2-5.0); ALKALINE PHOSPHATASE 141 u/l (38-126); ANION GAP 14 (6-22 (CALC)); BILIRUBIN, TOTAL 0.3 mg/dL (0.0-1.4); BUN 26 mg/dL (8-23); BUN/CREATININE RATIO 19 (12-20 (CALC)); CARBON DIOXIDE 23 mmol/l (22-30); CHLORIDE 101 mmol/l (95-108); CREATININE 1.4 mg/dL (0.7-1.3); GFR 50 ML/MIN (>=60 (CALC)); GFR FOR AFR.AMER. 60 ML/MIN (>=60 (CALC)); POTASSIUM 4.6 mmol/l (3.5-5.1); SGOT/AST 19 u/l (19-48); SODIUM 133 mmol/l (137-146); TOTAL PROTEIN 7.3 g/dL (6.3-8.2)
[2020-07-28 09:01] LABS: INTERNATIONAL NORMALIZED RATIO 1.1 RATIO (0.7-1.3); PROTHROMBIN TIME 10.9 SECONDS (9.0-12.5)
[2020-07-28 09:12] LABS: MYOGLOBIN 53 ng/mL (0 - 121)
--- NOTE | 2020-07-28 09:15 | NUR ---
RESTING ON STRETCHER. CALL ROONEY WITHIN REACH.
--- NOTE | 2020-07-28 09:51 | NUR ---
RESPIRATORY THERAPY HERE FOR BREATHING TREATMENT
--- NOTE | 2020-07-28 09:57 | NUR ---
NEB THERAPY ADMIN "LATE" PER RT AWAITING COVID SWAB RESULTS PER PROTOCOL.
--- NOTE | 2020-07-28 10:50 | NUR ---
RESTING ON STRETCHER. CALL ROONEY WITHIN REACH.
--- NOTE | 2020-07-28 11:50 | NUR ---
RESTING ON STRETCHER. FAMILY NOTIFIED OF PLAN
--- NOTE | 2020-07-28 12:50 | NUR ---
RESTING ON STRETCHER. PT ASSISTED WITH URINAL AND REMOVING CLOTHES. INCREASED SHORTNESS OF BREATH WITH ANY EXERTION. MD NOTIFIED. ORDER RECEIVED FOR ADDITIONAL BREATHING TX
--- NOTE | 2020-07-28 13:13 | NUR ---
PT C INCREASED WOB. CRACKOLES ON RLL AND RML. SUBSTITUTE CROSSING GUARD TO MONITOR.
[2020-07-28] MEDS ORDERED: TYLENOL500 MG PO (13:55)
[2020-07-28] MEDS ORDERED: ASPIRIN81 MG PO (13:55)
[2020-07-28] MEDS ORDERED: NORVASC10 M1 PO (13:55)
[2020-07-28] MEDS ORDERED: ATORVASTATIN CA80 MG PO (13:55)
[2020-07-28] MEDS ORDERED: ALLOPURINOL300 MG PO (13:55)
[2020-07-28] MEDS ORDERED: CALCIUM 600 +600 MG PO (13:56)
[2020-07-28] MEDS ORDERED: BACLOFEN5 MG PO (13:56)
--- NOTE | 2020-07-28 13:56 | NUR ---
REPORT CALLED TO LUZ MARIA SHEIKH. PT TO BE TRANSFERRED TO ICU ON TELE IN STABLE CONDITION
[2020-07-28] MEDS ORDERED: CARVEDILOL6.25 MG PO (13:57)
[2020-07-28] MEDS ORDERED: D32000 UNIT PO (13:57)
[2020-07-28] MEDS ORDERED: DOCQLACE100 MG PO (13:58)
[2020-07-28] MEDS ORDERED: CLONIDINE0.1 MG PO (13:58)
[2020-07-28] MEDS ORDERED: B-12 TR 1000 MC1 TAB PO (13:58)
[2020-07-28] MEDS ORDERED: DOXYCYCL HYC100 MG PO (13:59)
[2020-07-28] MEDS ORDERED: IRON325 M1 PO (13:59)
[2020-07-28] MEDS ORDERED: FINASTERIDE5 MG PO (13:59)
[2020-07-28] MEDS ORDERED: TRAZODONE50 MG PO (13:59)
[2020-07-28] MEDS ORDERED: PROZAC20 M1 PO (14:00)
[2020-07-28] MEDS ORDERED: LANTUS100 UNIT SC (14:00)
[2020-07-28] MEDS ORDERED: ISOSORBIDE MONO60 MG PO (14:00)
[2020-07-28] MEDS ORDERED: PRILOSEC20 MG/CAP PO (14:01)
[2020-07-28] MEDS ORDERED: LOSARTAN POTASS50 MG PO (14:01)
[2020-07-28] MEDS ORDERED: PRESERVISION AREDS 2 PO (14:01)
[2020-07-28] MEDS ORDERED: RANOLAZINE ER500 MG PO (14:01)
[2020-07-28] MEDS ORDERED: TAMSULOSIN0.4 MG PO (14:02)
[2020-07-28 14:14] LABS: URINE BILIRUBIN - DIPSTICK NEGATIVE (NEGATIVE); URINE BLOOD DIPSTICK SMALL (NEGATIVE); URINE COLOR YELLOW; URINE GLUCOSE - DIPSTICK >=1000 mg/dL (NEGATIVE); URINE KETONE NEGATIVE (NEGATIVE); URINE LEUK ESTERASE NEGATIVE (NEGATIVE); URINE PH 6.5 (4.5-8.0); URINE PROTEIN - DIPSTICK >=300 mg/dL (NEG-TRACE); URINE UROBILINOGEN - DIPSTICK 0.2 E.U./dL (0.2)
[2020-07-28 14:15] LABS: URINE NITRITE - DIPSTICK NEGATIVE (Negative)
[2020-07-28 14:22] LABS: URINE RBC 0-2 RBC/hpf (0-5); URINE WBC 0-2 WBC/hpf (0-5)
--- NOTE | 2020-07-28 14:29 | NUR ---
TRANSPORTED UPSTAIRS WITH A NURSE AND MONITORING
--- NOTE | 2020-07-28 14:30 | NUR ---
PT TO ROOM PER STRETCHER, TELLING THE ER NURSE WHY DONT YOU JUST SHOOT ME, I AM IN SO MUCH PAIN, PT TRANSFERED TO ICU STRETCHER, BLOOD PRESSURE ELEVATED, AND HEART RATE IN THE 130'S, ER NURSE STATED THAT WITH ANY MOVEMENT OR EXERTION PT TAKES ABOUT 20 MIN TO RECOUPERATE AND BLOOD PRESSURE TO COME DOWN AND HEART RATE TO SLOW DOWN. PT ALERT/ORIENTED X3, BUT REMAINS MOANING AND SAYING "I AM HURTING, JUST SHOOT ME AND GET THIS PAIN OVER WITH, " WHEN ASKED WHERE THE PAIN WAS AT PT JUST STATES ALL OVER. TRIED TO CALM PT DOWN BY TALKING WITH HIM, REPOSITIONING PT, BUT PT KEEPS SAYING I AM HURTING, I AM HURTING, HELP ME NURSE, HELP ME. NOTIFIED DR. CALHOUN OF PTS REQUEST FOR PAIN MEDICATIONS AND SOMETHING TO CONTROL BLOOD PRESSURE, AND WAITING FOR RESPONSE. ADVISED PT OF WAIT TIME. PT STATES HE HAS A CAREGIVER FROM [facility] THAT COMES IN TWICE A DAY TO HELP HIM. HE STATES HE STARTED FEELING SOB AND "BAD ALL OVER" TWO DAYS AGO. DID NOT TAKE ANY MEDICATIONS THIS AM. PT DOES HAVE SOME REDDNESS ON BUTTOCKS AREA BUT NO BREAKAGE.
--- NOTE | 2020-07-28 14:35 | NUR ---
VERY WET LOOSE COUGH AUDIBLE HEARD, SATS 91% ON OXYGEN AT 3 LITRES, WHEN MOVED PT TO SIDE BECAUSE HE STATED HIS BACK WAS HURTING, SATS DROPPED DOWN TO 83 AND PT KEPT SAYING I CANT BREATHE , I CANT BREATHE, INCREASED OXYGEN TO 5 LITRES FOR RECOVERY. CRACKLES AND WHEEZING NOTED TO ALL LUNG MACDONALD IN RIGHT SIDE.
--- NOTE | 2020-07-28 15:45 | NUR ---
ORDER FAXED TO [facility] FOR 0.5 MG OF IV DILAUDID FOR PAIN AND 10 MG OF IV HYDRALAZINE Q 4 HRS PRN FOR BLOOD PRESSURE.
--- NOTE | 2020-07-28 16:19 | NUR ---
TRIMMING DEPARTMENT BLOCKER ASSESSED PT IN ICU. PT C ELEVATED WOB STILL. C EXERTION, PT INCREASED WOB AND DECREASED SPO2. PT VERBALIZES C/O "PAIN ALL OVER, HURTING ALL OVER". PT PERSONAL CELLULAR PHONE C INCOMING CALL, PT ANSWERED CALL AND COMMUNICATED C FULL, CLEAR AND COMPLETE SENTENCES AT THIS TIME. NO ACUTE CHANGES FROM WHEN ASSESSED BY RT IN ER AT THIS TIME. TRIMMING DEPARTMENT BLOCKER DID PLACE NIV IN ICU BY PT ROOM FOR EMERGENCY ACCESS PRN. TRIMMING DEPARTMENT BLOCKER TO MONITOR.
--- NOTE | 2020-07-28 16:19 | NUR ---
DILAUDID 0.5 MG IV GIVEN PER ORDER, ADVISED PT TO TAKE SLOW DEEP BREATHS TO HELP MEDICATION TAKE THE PAIN AWAY. PT IS CONSTANTLY TURNING BACK AND FORTH, STATES I CANT SIT STILL I AM HURTING ALL OVER, JUST SHOOT ME.
--- NOTE | 2020-07-28 16:25 | NUR ---
PT HAS CALMED DOWN TO ABOUT A 3 AT THIS TIME. RESTING QUIETLY. HEART RATE IS DOWN TO 109. BLOOD PRESSURE IS COMING DOWN SLIGHTLY 202/101 AT THIS TIME
--- NOTE | 2020-07-28 16:38 | NUR ---
PT RESTING AT THIS TIME, RIGHT LUNG STILL SOUNDS COARSE WITH CRACKLES AND HAS A LOOSE WET SOUNDING COUGH, BLOOD PRESSURE HAS COME DOWN TO 164/100 AND HEART RATE IS 111
--- NOTE | 2020-07-28 17:09 | NUR ---
PT APPEARS TO BE CALMER AFTER DILAUDID, BUT REMAINS WITH A WET LOOSE COUGH IN RIGHT LUNG WITH WHEEZING, AND CRACKLES. PTS SISTER CALLED FOR UPDATE AND THIS STAFF WAS INFORMED THAT PT HAD AGENT ORANGE WHILE IN SERVICE AND THAT WAS REASON FOR LEFT LUNG REMOVAL. [facility] AND SHE DOES NOT BELIEVE THAT ANYTHING WAS EVER SAID ABOUT HIS RIGHT LUNG. WAS SEEN BY [facility] DOCTOR AND BLOOD WORK TAKEN LAST WEEK. AT THIS TIME BLOOD PRESSURE IS 158/97 HEART RATE DOWN TO 98
--- NOTE | 2020-07-28 17:30 | NUR ---
NOTIFIED DR. CALHOUN OF PTS CONTINUED WET LOOSE NON PRODUCTIVE COUGH, ASKED FOR POSSIBLE ORDER FOR LASIX. DR. CALHOUN RETURNED CALL AND ORDER RECEIVED FOR 40 MG. LASIX, AWAITING [facility]AL TO VERIFY MEDICATION TO BE GIVEN. PT RESTING QUIETLY IN BED AT THIS TIME.
--- NOTE | 2020-07-28 19:00 | NUR ---
REPORT RECEIVED FROM Antoine OSEGUERA RN, CARE OF PT ASSUMED AT THIS TIME.
--- NOTE | 2020-07-28 19:15 | NUR ---
PHYSICAL ASSESMENT COMPLETE. PT MOANING OUT IN PAIN. WHEN QUESTIONED PT STATES HE CANNOT SPECIFY WHERE PAIN IS, STATES "I DONT KNOW, ITS EVERYWHERE". REPORTS 10/10 AND REPORTS PAIN IS ACUTE WITH ONSET IN THE "LAST COUPLE DAYS". LUNG SOUNDS WITH COARSE CRACKLES THROUGHOUT. RESPIRATIONS ARE UNLABORED AT REST AND SPO2 94% WITH 02 @ 3L/M VIA NC. NO EDEMA NOTED. 450 ML CLEAR YELLOW URINE EMPTIED FROM URINAL. DUODERM DRESSING TO L ANTERIOR LOWER MARTINEZ. AFIB WITH RATE BETWEEN 100-130 ON MONITOR. CALL ROONEY WITHIN REACH, AGREES TO CALL PRN. BED LOCKED IN LOW POSITION WITH BEDRAILS UP X2.
--- NOTE | 2020-07-28 19:53 | NUR ---
EXAM FINDINGS REPORTED TO DR. CALHOUN, ORDER FOR HYDROCODONE, SOLUMEDROL AND XOPENEX NEB RECEIVED VERBALLY AND READ BACK. SEE CHART.
--- NOTE | 2020-07-28 20:18 | NUR ---
PT MEDICATED WITH PRN DILAUDID FOR C/O PAIN 12/16. SEE E-MAR.
--- NOTE | 2020-07-28 20:20 | NUR ---
REPORTED BY Lawrence JIMÉNEZ CNA, FINGERSTICK GLUCOSE 282mg/dl. RESULTS REPORTED TO DR. CALHOUN. ORDER RECEIVED TO INITIATE LOW DOSE SLIDING SCALE INSULIN PROTOCOL.
--- NOTE | 2020-07-28 21:18 | NUR ---
PT REPORTS MUCH IMPROVEMENT TO PAIN LEVEL, RATES 5/10. PT APPEAARS MORE COMFORTABLE AND IN LESS DISTRESS. SCHEDULED MEDICATIONS ADMINISTERED WITH PRN HYDROCODONE, SEE E-MAR. PLAN OF CARE REVIEWED WITH PT, PT VERBALIZES UNDERSTANDING. PT DENIES NEEDS AT THIS TIME. CALL ROONEY WITHIN REACH, AGREES TO CALL PRN.
--- NOTE | 2020-07-28 21:27 | NUR ---
XOPENEX NEBULIZER ADMINISTERED BY Rahul CARLISLE LINEMAN A CLASS, SEE E-MAR. L ANTERIOR LOWER MARTINEZ DUODERM REMOVED. AREA CLEANSED WITH SALINE, PATTED DRY, PHOTO DOCEMENTATION OBTAINED FOR CHART, NEW DUODERM DRESSING APPLIED. WOUND IS 2 SMALL CIRCULAR OPEN AREAS 1X1 CM WITH PINK WOUND BED AND DIRECTLY BELOW 0.5 X 0.5 CM WITH PINK WOUND BED. SURRONDING AREA FEELS BOGGY.
--- NOTE | 2020-07-28 22:50 | NUR ---
PT APPEARS TO BE SLEEPING COMFORTABLY, EYES CLOSED, SNORING, RESPIRATIONS UNLABORED, SP02 98% AFIB WITH RATE OF 80S AND 90S ON MONITOR. LUNGS WITH SLIGHT EXPIRATORY WHEEZES AND RHONCHI, LUNG SOUNDS IMPROVED. UPDATED FINDINGS REPORTED TO DR. CALHOUN.
[2020-07-29] VITALS (21 sets, daily range): BP systolic 131–198; BP diastolic 79–110
--- NOTE | 2020-07-29 00:07 | NUR ---
Paloma TRIANA BARREL STRAIGHTENER AT BEDSIDE COLLECTING 0000 TROPONIN.
--- NOTE | 2020-07-29 00:22 | NUR ---
RYTHM CONVERTS TO SR W/ PVCS ON MONITOR AT APPROXIMATELY 0022.
--- NOTE | 2020-07-29 01:13 | NUR ---
TROPONIN RESULT 0.108 ng/ml
--- NOTE | 2020-07-29 03:15 | NUR ---
PT APPEARS TO BE SLEEPING COMFORTABLY, EYES CLOSED, SNORING, RESPIRATIONS UNLABORED, SP02 98% AFIB WITH RATE OF 80S AND 90S ON MONITOR. LUNG SOUNDS REMAIN RHONCHOROUS. NIBP 188/104mmHg. PT WAKES EASILY TO VERBAL STIMULI. PRN CLONIDINE 0.1MG ADMINISTERED. PT DENIES PAIN. PT DENIES NEEDS. URINAL EMPTIED OF 400ML CLEAR YELLOW URINE. CALL ROONEY WITHIN REACH, AGREES TO CALL PRN.
--- NOTE | 2020-07-29 05:15 | NUR ---
Paloma TRIANA BLADE WORKER AT BEDSIDE TO DRAW AM LABS.
--- NOTE | 2020-07-29 05:20 | NUR ---
NIBP 180/99 mmHg, PRN HYDRALAZINE ADMINISTERED WITH SCHEDULED MEDICATIONS, SEE E-MAR.
[2020-07-29 05:37] LABS: HEMATOCRIT 39.6 % (39.0-50.0); HEMOGLOBIN 12.5 g/dl (14.0-18.0); MEAN CELL VOLUME 92.1 fL CALC (80.0-100.0); MEAN CORPUSCULAR HGB 29.1 pG CALC (26.0-32.0); MEAN CORPUSCULAR HGB CONC 31.6 g/dL CAL (32.0-36.0); RED BLOOD COUNT 4.3 mill/uL (4.70-6.10); RED CELL DISTRI WIDTH 13.9 % (11.5-15.5)
--- NOTE | 2020-07-29 05:53 | NUR ---
NIBP 179/96mmHg
[2020-07-29 06:00] LABS: ALBUMIN 3.4 g/dL (3.2-5.0); ALKALINE PHOSPHATASE 123 u/l (38-126); ANION GAP 11 (6-22 (CALC)); BILIRUBIN, TOTAL 0.4 mg/dL (0.0-1.4); BUN 24 mg/dL (8-23); BUN/CREATININE RATIO 18 (12-20 (CALC)); CHLORIDE 101 mmol/l (95-108); CREATININE 1.3 mg/dL (0.7-1.3); GFR 54 ML/MIN (>=60 (CALC)); GFR FOR AFR.AMER. > 60 ML/MIN (>=60 (CALC)); POTASSIUM 4.3 mmol/l (3.5-5.1); SGOT/AST 17 u/l (19-48); SODIUM 136 mmol/l (137-146)
[2020-07-29 06:01] LABS: CHOLESTEROL HDL RATIO 2.5 (<4.4 (CALC)); MAGNESIUM 1.8 mg/dL (1.6-2.3)
[2020-07-29 06:03] LABS: CARBON DIOXIDE 28 mmol/l (22-30)
--- NOTE | 2020-07-29 07:00 | NUR ---
REPORT RECEIVED FROM INSURANCE MARKETING REP. PT IS AWAKE AND WATCHING TV, DENIES ANY PAIN AT THIS TIME, ALERT/ORIENTED X3, REMAINS WITH LOOSE WET COUGH, THAT PT STATES FEELS BETTER SINCE YESTERDAY. RESP HERE FOR NEB TREATMENT, PT STARTED YELLING I CANT BREATHE, I CANT BREATHE, AND PULLED IT OFF. RESP NOTIFIED.
--- NOTE | 2020-07-29 07:48 | NUR ---
AFTER HYDRALIZINE GIVEN PTS BLOOD PRESSURE DOWN TO 189/93 PT STATES DOESNT WANT TO WATCH ANY TV, JUST WANTS TO LAY THERE AND REST, STATES HE DIDNT GET MUCH SLEEP LAST NIGHT
--- NOTE | 2020-07-29 07:58 | NUR ---
PT BEGAN MOANING THAT HE WAS IN PAIN, HE WAS HURTING ALL OVER, FELT LIKE HIS BODY WAS BURNING ALL OVER. MEDICATED WITH DILAUDID 0.5 MG IV FOR PAIN
--- NOTE | 2020-07-29 08:05 | NUR ---
PT CALMING DOWN AT THIS TIME, STATES PAIN HAS DECREASED TO A 2 FROM A 10
--- NOTE | 2020-07-29 09:53 | NUR ---
PT RESTING QUIETLY ON BED AT THIS TIME, NO COMPLAINTS.
--- NOTE | 2020-07-29 13:13 | NUR ---
PT STATES NOT HUNGRY FOR MEAL TRAY, CALLED DOWN TO DIETARY AND ORDERED A GRILLED CHEESE, PT TOOK TWO BITES AND SAID JUST DOESNT WANT TO EAT. DENIES ANY PAIN AT THIS TIME. TALKING ON PHONE TO SISTER, LAUGHING AND JOKING. VITAL SIGNS STABLE
--- NOTE | 2020-07-29 15:05 | NUR ---
PT RESTING QUIETLY ON BED, VITAL SIGNS STABLE. NO COMPLAINTS OF PAIN OR DISCOMFORT AT THIS TIME. TALKING ON PHONE, REMAINS ALERT/ORIENTED X3.
--- NOTE | 2020-07-29 17:30 | NUR ---
PTS ACCUCHECK IS 134, NO INSULIN NEEDED, ADVISED PT THAT HE NEEDED TO EAT SOMETHING, REFUSED BREAKFAST AND LUNCH. GAVE HIM AN ENSURE BECAUSE HE REFUSED SUPPER, STATES IT DIDNT TASTE GOOD. VITAL SIGNS STABLE
--- NOTE | 2020-07-29 19:45 | NUR ---
awake. no acute resp diff. coarse breath sounds bilat. has loose non prod cough. o2 cont per nc. cardiac rehab nurse shows sinus tach hr 103. #20 lac saline lock. voids per urinal. fall precautions cont.
--- NOTE | 2020-07-29 21:25 | NUR ---
dilaudid 0.5mg ivp given for c/o gen disc.
--- NOTE | 2020-07-29 22:00 | NUR ---
awake. no further c/o voiced.
[2020-07-30] VITALS (20 sets, daily range): BP systolic 147–196; BP diastolic 80–112
--- NOTE | 2020-07-30 00:01 | NUR ---
calling out for "the dog in the room." instructed pt that no dog was in the room. pt has been sleeping since pain med was administered & pt said he "heard a dog." pt reassured.
--- NOTE | 2020-07-30 01:00 | NUR ---
pt awake watching tv. instructed pt it was time for sleep. pt turned tv off & went to sleep.
--- NOTE | 2020-07-30 02:00 | NUR ---
resting quietly. resps even & unlabored. no apparent distress.
--- NOTE | 2020-07-30 04:00 | NUR ---
eyes closed. no distress. stereoptic projection topographer shows sinus rhythm pvcs hr 96.
--- NOTE | 2020-07-30 04:30 | NUR ---
lab here. blood zoila.
[2020-07-30 04:58] LABS: HEMATOCRIT 40.1 % (39.0-50.0); HEMOGLOBIN 12.8 g/dl (14.0-18.0); MEAN CELL VOLUME 90.5 fL CALC (80.0-100.0); MEAN CORPUSCULAR HGB 28.9 pG CALC (26.0-32.0); MEAN CORPUSCULAR HGB CONC 31.9 g/dL CAL (32.0-36.0); RED BLOOD COUNT 4.43 mill/uL (4.70-6.10); RED CELL DISTRI WIDTH 13.9 % (11.5-15.5)
[2020-07-30 05:20] LABS: CREATININE 1.5 mg/dL (0.7-1.3); POTASSIUM 4.4 mmol/l (3.5-5.1)
--- NOTE | 2020-07-30 05:55 | NUR ---
corporate ethics officer shows a fib pvcs hr 105.
--- NOTE | 2020-07-30 07:20 | NUR ---
RECIEVED PATIENT FROM NIGHT NURSE.
--- NOTE | 2020-07-30 08:00 | NUR ---
PATIENT ASSESSED, CURRENTLY SITTING IN BED WATCHING TV. DIDN'T WANT HIS BREAKFAST BUT DID TAKE SOME APPLE JUICE.
--- NOTE | 2020-07-30 09:27 | NUR ---
LEVEMIR NOT GIVEN, PATIENT IS REFUSING MEAL.
--- NOTE | 2020-07-30 10:00 | NUR ---
PATIENT LAYING IN BED WATCHING TV.
--- NOTE | 2020-07-30 12:20 | NUR ---
PATIENT REFUSING TO EAT LUNCH, STATED THAT HE CAN'T EAT BECAUSE HIS "DENTURES KEPT FALLING OUT". SPOKE TO HIM HE STATED THAT HIS SISTER "PROBABLY CAN'T BRING HIM ANY ADHESIVE FOR HIS DENTURES". THEN STATED THAT HE "JUST DONT WANT TO EAT". WILL CONTINUE TO MONITOR.
--- NOTE | 2020-07-30 14:00 | NUR ---
PATIENT IS UP IN CHAIR WATCHING TV.
--- NOTE | 2020-07-30 16:00 | NUR ---
PATIENT IS LAYING IN BED WATCHING TV.
--- NOTE | 2020-07-30 18:00 | NUR ---
PATIENT LAYING IN BED WATCHING TV.
--- NOTE | 2020-07-30 18:45 | NUR ---
SPOKE TO SISTER MACKENZIE, GAVE HER AN UPDATE .
--- NOTE | 2020-07-30 18:50 | NUR ---
REPORT RECEIVED FROM Antoine BERUMEN RN, ORIENTING WITH Paloma SEVILLA RN. CARE OF PT ASSUMED AT THIS TIME.
--- NOTE | 2020-07-30 19:12 | NUR ---
PADMAJA SCOTT PT DECLINES XOPENEX NEB AT THIS TIME. SEE E-MAR.
--- NOTE | 2020-07-30 19:28 | NUR ---
PT LAYING IN BED, TALKING ON MOBILE PHONE, SPEAKER PHONE ON. PT OVERHEARD SAYING "I'M GETTING SUSPICIOUS OF THESE PEOPLE, IF I END UP TOMORROW YOU KNOW WHAT HAPPENED", PT PASSES PHONE TO THIS NURSE, STATES "HERE TALK TO HER", SPEAKER IDENTIFIES SELF PT'S CAREGIVER. STATES SHE IS WORRIED ABOUT HIS CONFUSION. ADVISED HER THAT CONFUSION STARTED AFTER RECEIVNG DOSE OF DILAUDID AND PT WOULD NOT BE RECEIVING FURTHER DOSES. PT STATES "I DONT TRUST ALL THESE PEOPLE, BUT I REMEMBER YOU", PT STATES IS WILLING BE CARED FOR AND ACCEPT MEDICATION FROM THIS NURSE. ASSURED PT I WOULD BE HIS PRIMARY CAREGIVER TONIGHT. PT COMFORTED AND REASSURED. PT CALMER AND WILLNG TO PARTICIPATE IN CARE. PHYSICAL ASSESMENT COMPLETED. RESPIRATIONS REGULAR AND UNLABORED. SLIGHT EXPIRATORY WHEEZE NOTED TO LEFT LUNG FIELD. PT HX S/P R-SIDE PNEUMONECTOMY. SPO2 99% WITH 02 @ 4L HUMIDIFIED VIA NC. L-AC #20G PATENT AND SALINE LOCKED. LEFT ANTERIOR LOWER MARTINEZ WITH DUODERM DATED 07/28/20 C/D/I. ST 101 ON MONITOR. OFFERED TO SOAK PT'S DENTURES, PT DECLINES STATES "I LIKE TO KEEP THEM IN, IT MAKES ME FEEL LIKE I HAVE TEETH, AND I MAY NEED TO BITE SOMEONE." 100ML CLEAR YELLOW URINE EMPTIED FROM URINAL. PT DENIES FURTHER NEEDS WHEN ASKED. PLAN OF CARE REVIEWED, PT DOES VERBALIZE UNDERSTANDING, WILL LIKELY NEED REINFORCEMENT SECONDARY TO CURRENT AMS. CALL ROONEY WITHIN REACH, AGREES TO CALL PRN. BED LOCKED AND IN LOW POSITION WITH BEDRAILS UP X2 AND BED ALARM ON. PT'S ROOM IS IN DIRECT VIEW OF THIS NURSE FROM NURSES STATION.
--- NOTE | 2020-07-30 20:30 | NUR ---
FINGERSTICK GLUCOSE 283mg/dl
--- NOTE | 2020-07-30 21:15 | NUR ---
PT APPEARS TO BE LESS CONFUSED, STATES "I APOLOGIZE FOR EARLIER, MAYBE I WAS BEING PARANOID", PT STATES "I DONT WANT TO BE TAKING ANYMORE OF THAT DILAUDID, IT MAKES ME FEEL LIKE IM STANDING UPSIDE DOWN" PT REASSURED NO FURTHER DILAUDID TO BE ADMINISTERED. SCHEDULED MEDICATION AND PRN ANTIHYPERTENSIVES AND LORTAB ADMINISTERED. SEE E-MAR. WHEN LOVENOX TO BE ADMINISTERED PT STATES "THATS THE SHOT TO PREVENT BLOOD CLOTS" 200ML CLEAR YELLOW URINE EMPTIED FROM URINAL. PT DENIES FURTHER NEEDS AT THIS TIME. LAYING IN BED WATCHING TV. CALL ROONEY WITHIN REACH, AGREES TO CALL PRN.
--- NOTE | 2020-07-30 22:05 | NUR ---
PT ACCEPTS NEB TX FROM [facility] AT THIS TIME.
[2020-07-31] VITALS (18 sets, daily range): BP systolic 121–189; BP diastolic 66–102
--- NOTE | 2020-07-31 00:10 | NUR ---
PT APPEARS TO BE SLEEPING COMFORTABLY, EYES CLOSED, SNORING, RESPIRATIONS UNLABORED, SP02 98% AFIB WITH RATE OF 80S AND 90S ON MONITOR. LUNGS WITH SLIGHT EXPIRATORY WHEEZES AND RHONCHI.
--- NOTE | 2020-07-31 02:00 | NUR ---
PT APPEARS TO BE SLEEPING COMFORTABLY, EYES CLOSED, SNORING, RESPIRATIONS UNLABORED, SP02 98% AFIB WITH RATE OF 80S AND 90S ON MONITOR. CALL ROONEY REMAINS WITHIN REACH.
--- NOTE | 2020-07-31 03:55 | NUR ---
PT AWAKE, MOANING IN PAIN, ELEVATED NIBP. PRN CLONIDINE, HYDRALAZINE AND LORTAB ADMINISTERED. SEE E-MAR. PT ASSISTED UP TO BATHROOM. HAD LARGE FORMED BROWN BM AND SOME BRIGHT BLOOD ON TOILET PAPER. L-AC #20G D/C'D-CATH INTACT. NEW SITE TO L-FA #22G X2 ATTEMPT. PATENT AND FLUSHES EASILY.
--- NOTE | 2020-07-31 05:45 | NUR ---
Porfirio MAYNARD PEDIATRIC DENTAL ASSISTANT AT BEDSIDE COLLECTING AM LABS.
[2020-07-31 06:44] LABS: HEMATOCRIT 39.2 % (39.0-50.0); HEMOGLOBIN 12.4 g/dl (14.0-18.0); MEAN CELL VOLUME 91.2 fL CALC (80.0-100.0); MEAN CORPUSCULAR HGB 28.8 pG CALC (26.0-32.0); MEAN CORPUSCULAR HGB CONC 31.6 g/dL CAL (32.0-36.0); RED BLOOD COUNT 4.3 mill/uL (4.70-6.10)
[2020-07-31 07:09] LABS: CREATININE 1.6 mg/dL (0.7-1.3)
--- NOTE | 2020-07-31 07:22 | NUR ---
RECIEVED PATIENT FROM NIGHT NURSE
--- NOTE | 2020-07-31 08:46 | NUR ---
PATIENT REFUSED BREAKFAST. REFUSED TO EAT OR DRINK WHEN OFFERED ADDITIONAL OPTIONS. PATIENT IS CURRENTLY BACK TO SLEEPING.
--- NOTE | 2020-07-31 10:00 | NUR ---
PATIENT STATED HE WANTS TO EAT, OFFERED CEREAL. PATIENT SAID YES AND IS NOW EATING HIS CEREAL.
--- NOTE | 2020-07-31 12:00 | NUR ---
PATIENT ATE SOME OF HIS LUNCH.
--- NOTE | 2020-07-31 14:00 | NUR ---
PATIENT IS LAYING IN BED SLEEPING.
--- NOTE | 2020-07-31 16:00 | NUR ---
PATIENT IS GETTING READY FOR TRANSFER TO [facility]
--- NOTE | 2020-07-31 16:30 | NUR ---
PATIENT IS TRANSFERRED TO [facility]. REPORT WAS GIVEN PRIOR TO TRANSFER.
--- NOTE | 2020-07-31 17:14 | NUR ---
PT IS RECEIVED TO MED/SURG, SEEN ALERT AND ORIENTED X 3. LUNGS ARE SLIGHTLY WHEEZY BUT GENERALLY CLEAR, 2 LPM NC. BP ELEVATED, PT PROVIDED WITH HYDRALAZINE AND CLONIDINE. PT'S BLOOD SUGAR ALSO ELEVATED, COVERED APPROPRIATELY.
--- NOTE | 2020-07-31 20:00 | NUR ---
PHYSICAL ASSESMENT COMPLETE. PT CURRENTLY DENIES PAIN OR DISCOMFORT. SCHEDULED MEDICATIONS AND PRN MEDICATION ADMINISTERED, SEE E-MAR. PT DENIES ANY NEEDS AT THIS TIME. PICTURE TAKEN OF PRESSURE ULCER. BARRIER CREAM WAS APPLIED. PLAN OF CARE REVIEWED, PT DENIES QUESTIONS, VERBALIZES UNDERSTANDING. ITEMS WITHIN REACH, BED LOCKED IN LOW POSITION W/ BEDRAILS UP X2. CALL ROONEY WITHIN REACH, AGREES TO CALL PRN.
[2020-08-01] VITALS (7 sets, daily range): BP systolic 122–168; BP diastolic 68–95
--- NOTE | 2020-08-01 01:13 | NUR ---
PT LAYING IN BED WATCHING TV, APPEARS COMFORTABLE AND IN NO DISTRESS. RESPIRATIONS REGULAR AND UNLABORED. ITEMS REMAIN WITHIN REACH, CALL ROONEY REMAINS WITHIN REACH. BED REMAINS LOCKED AND IN LOW POSITION WITH BEDRAILS UP X2. WILL CONTINUE TO MONITOR.
--- NOTE | 2020-08-01 04:27 | NUR ---
PTS BP 166/92. PT GIVEN PRN MEDICATION TO REDUCE BP. WILL CONTINUT TO MONITOR.
[2020-08-01 05:27] LABS: HEMATOCRIT 38.8 % (39.0-50.0); HEMOGLOBIN 12.4 g/dl (14.0-18.0); MEAN CORPUSCULAR HGB 28.8 pG CALC (26.0-32.0); RED BLOOD COUNT 4.31 mill/uL (4.70-6.10)
[2020-08-01 05:39] LABS: CREATININE 1.6 mg/dL (0.7-1.3); MAGNESIUM 2.2 mg/dL (1.6-2.3)
--- NOTE | 2020-08-01 07:00 | NUR ---
RECIEVED REPORT FROM LUZ MARIA SANFORD
--- NOTE | 2020-08-01 08:01 | NUR ---
PT RESTING IN SEMI FOWLERS POSITION. PT IS A/O X3. ASSESSMENT AND VITALS COMPLETED. BP 161/90, HR 91, O2 95% ON ROOM AIR. RESPIRATIONS ARE EVEN AND UNLABORED ON ROOM AIR, 2L NC AT BEDSIDE PRN. PT INSTRUCTED TO REAPPLY IF NEEDED. LUNG SOUNDS ARE COARSE. HEART RHYTHM NORMAL WITH TELE IN PLACE, SR PER ER MONITORING. BOWEL SOUNDS ARE ACTIVE. RADIAL AND PEDAL PULSES AR STRONG. #20G IN LFA FLUSHED, SITE APPEARS HEALTHY AND PATENT. STAGE 2 PRESSURE ULCER NOTED TO LEFT BUTTOCK, OPEN TO AIR. DRESSING TO LLE CDI.GLUCOSE REUSLTING IN 210, COVERAGE ADMINISTERED. PT DENIES OF ANY PAINS OR DISCOMFORTS AT THIS TIME. ALL SAFETY PRECAUTIONS ARE IN PLACE WITH CALL LIGHT IN REACH. WILL CONTINUE TO MONITOR.
--- NOTE | 2020-08-01 11:16 | NUR ---
DR CALHOUN AT BEDSIDE
--- NOTE | 2020-08-01 11:31 | NUR ---
ACCUCHECK RESULTING IN 468. NOTFIED. VERBAL ORDER TO ADMINISTER 20 UNITS OF HUMALOG.
--- NOTE | 2020-08-01 12:00 | NUR ---
20 UNITS OF HUMALOG ADMINISTERED. IV ANTIBIOTICS INFUSING WITH EASE, SITE REMAINS HEALTHY AND PATENT. 2L NC ON WHEN ENTERING THE ROOM. O2 99%, O2 REMOVED FOR WALKTEST. RESPIATIONS ARE EVEN AND UNLABORED. PT DENIES OF ANY NEEDS AT THIS TIME.ALL SAFETY PRECAUTIONS ARE IN PLACE WITH CALL LIGHT IN REACH. WILL CONTINUE TO MONITOR.
--- NOTE | 2020-08-01 14:16 | NUR ---
WALK TEST COMPLETED. O2 95% WHILE RESTING. O2 DECREASED TO 88% WHILE WALKING./ PT ASSISTED BACK INTO ROOM AND INTO CHAIR. O2 93% WHILE RESTING. RESPIRATIONS ARE SHALLOW. 2L NC AT BEDSIDE PRN. PT INSTRUCTED TO REAPPLY IF NEEDED. PT VERBLIZED UNDERSTANDING. ALL SAFETY PRECAUTIONS ARE IN PLACE. WILL CONTINUE TO MONITOR.
--- NOTE | 2020-08-01 14:20 | NUR ---
PHYSICAL THERAOY AT BEDSIDE
--- NOTE | 2020-08-01 15:20 | NUR ---
SPEECH THERAPY AT BEDSIDE
--- NOTE | 2020-08-01 16:40 | NUR ---
PT RESTING IN SEMI FOWLERS POSITION. RESPIRATIONS ARE EVEN AND UNLABOED ON ROOM AIR. #20G IN LFA REMAINS IN PLACE.TELE MONITORING IN PLACE. PT DENIES OF ANY PAINS OR DISCOMFORTS AT THIS TIME. ALL SAFETY PRECAUTIONS ARE IN PLACE WITH CALL LIGHT IN REACH. WILL CONTINUE TO MONITOR.
--- NOTE | 2020-08-01 19:54 | NUR ---
PT OTED UP IN CHAIR AT START OF SHIFT. REPORT RECIEVED FROM DAY SHIFT NURSE. BREATHING EVEN AND UNLABORED. NO COMPLAINTS REPOTED AT THIS TIME. SHIFT ASSESSMENTS COMPLETED, SEE DOCUMENTATION. SAFETY PRECAUTIONS IN PLACE, BED IN LOWEST POSITION, CALL LIGHT WITHIN REACH. WILL MONITOR
[2020-08-02] VITALS: BP 167/94
--- NOTE | 2020-08-02 00:41 | NUR ---
PT RESTING IN BED COMFORTABLY, IV TO LFA NOTED TO BE SLIGHTLY RED AND PT C/O BURNING WHEN FLUSHED. NEW SITE STARTED TO RFA X 3 ATTEMPTS, SITE PATENT AND FLUSHES EASILY. PT C/O PAIN IN BLLE, REQUESTED TYLENOL. TYLENOL GIVEN PER ORDER. BARIER CREAAM APPLIED TO L BUTT CHEEK FOR PROTECTION AND PREVENTION. WILL CONTINUE TO MONITOR
[2020-08-02 04:00] VITALS: BP 158/84
--- NOTE | 2020-08-02 04:10 | NUR ---
PT UP TO THE BATHROOM AT THIS TIME. AMBULATES WELL WITH A WALKER. PT B/P HAS BEEN SLIGHTLY ELEVATED, MANUAL B/P OBTAINED 158/84. SYSTOLIC BLOOD PRESSURE IS TOO LOW AT THIS TIME TO GIVE PRN HTN MEDICINES. WILL RECHECK B/P AGAIN IN ABOUT THIRTY MINUTES TO EVALUATE THE NEED FOR FURTHER MEDICATIONS.
[2020-08-02 05:30] VITALS: BP 154/87
[2020-08-02 05:58] LABS: HEMATOCRIT 42.9 % (39.0-50.0); HEMOGLOBIN 13.6 g/dl (14.0-18.0); MEAN CELL VOLUME 89.6 fL CALC (80.0-100.0); MEAN CORPUSCULAR HGB 28.4 pG CALC (26.0-32.0); MEAN CORPUSCULAR HGB CONC 31.7 g/dL CAL (32.0-36.0); RED BLOOD COUNT 4.79 mill/uL (4.70-6.10); RED CELL DISTRI WIDTH 13.7 % (11.5-15.5)
--- NOTE | 2020-08-02 06:03 | NUR ---
BLOOD PRESSURE NOTED TO BE HIGHER IN THE RIGHT ARM, OVER PAPRAMETERS TO ADMINSTER IV APRESOLINE. B/P IN LEFT ARM LOWER THAN PARPAMETERS FOR APRESOLINE. PT SHOWING S/S OF HTN, INCLUDING, A FLUSHED FACE AND REPORTS OF A HEADACHE. IV ARPESOLINE GIVEN PER ORDERS D/T S/S OF HTN. PT TOLERATED WELL. WILL RECHECK B/P WITHIN THE HOUR. WILL MONITOR
[2020-08-02 06:27] LABS: CREATININE 1.7 mg/dL (0.7-1.3)
--- NOTE | 2020-08-02 07:00 | NUR ---
RECIEVED REPORT FROM TED DAI
--- NOTE | 2020-08-02 07:10 | NUR ---
PT RESTING COMFORTABLY IN BED, WATCHING TELEVISUON. NAD. VSS. BBS= RHO URL ULL. DIM IN BASES BILAT. GROUP SEGMENT CONSULTANT TO MONITOR. PT C NO COMPLAINTS AT TI MS TIME. -
[2020-08-02 07:33] VITALS: BP 136/86
--- NOTE | 2020-08-02 07:33 | NUR ---
PT IS A/O X3 WITH SOME CONFUSION. ASSESSMENT AND VITALS COMPLETED. BP 136/86, HR 100, O2 98% ON 2L NC. RESPIRATIONS ARE EVEN AND UNLABORED. PT REQUEST TO KEEP OXYGEN ON DUE TO EXCERTIONAL SOB. HEART RHYTHM NORMAL WITH TELE IN PLACE. BOWEL SOUNDS ARE ACTIVE. #22G IN RFA FLUSHED SITE APPEARS HEALTHY AND PATENT. PT DENIES OF ANY PAINS OR DISCOMFORTS AT THIS TIME.STAGE 2 WOUND TO LEFT BUTTOCKS. BARRIER CREAM APPLIED. DRESSING TO LEFT MARTINEZ REMAINS CDI.PT COMPLAINS OF 8/10 GENERALIZED PAIN. PT TO BE MEDICATED PER EMAR. ALL SAFETY PRECAUTIONS ARE IN PLACE WITH CALL LIGHT IN REACH.ENCOUAGED PT TO CALL FOR ASSISTANCE. PT VERBLAIZED UNDERSTANDING. WILL CONTINUE TO MONITOR.
--- NOTE | 2020-08-02 08:34 | NUR ---
Pt received upright in bedside recliner on 2L via nasal cannula. Patient is alert. Breathing is viscous/audible at baseline. Pt reports he has a poor appetite and does not feel like eating. LIVESTOCK FARM WORKERS explained to patient the role of the therapist and reasoning for f/u to encourage patient to participate with therapist. Patient accepted 3 small sips of water via straw. He presented with a suspected delayed pharyngeal swallow, decreased hyolaryngeal excursion, and multiple swallows per bolus presentation. Given patient's SOB, he continues to be at risk for aspiration, as this can lead to decreased coordination of breathing and swallowing. Clinician educated patient on aspiration precautions: Upright and OOB for meals, small bites and sips, slow rate, and remain upright after PO intake for 30 minutes. LIVESTOCK FARM WORKERS will continue to follow given high risk for aspiration.
--- NOTE | 2020-08-02 09:00 | NUR ---
LORTAB ADMINISTERED FOR PAIN. PT TOLERATED WELL. INFORMED PT OF NEED TO SHOWER TODAY. PT REFUSED SAYING, WE CAN DO IT A DIFFERENT DAY. PT INFORMED THAT HE WILL BE GETTING WASHED UP DUE TO GOWN BEING SOILED. ALL SAFETY PRECAUTIONS ARE IN PLACE WITH CALL LIGHT IN REACH. WILL CONTINUE TO MONITOR.
--- NOTE | 2020-08-02 10:13 | NUR ---
DR CALHOUN AT BEDSIDE
[2020-08-02] MEDS ORDERED: DOXYCYCL HYC100 MG PO (10:16)
[2020-08-02] MEDS ORDERED: LASIX 20 MG TAB20 MG PO (10:18)
[2020-08-02] MEDS ORDERED: MEDDOSEPAK PO (10:18)
[2020-08-02] MEDS ORDERED: IPRATROPIU0.5 MG/3 M IN (10:19)
[2020-08-02 10:30] VITALS: BP 141/84
--- NOTE | 2020-08-02 10:37 | NUR ---
STOOL SAMPLE COLLECTED. SENT TO LAB
--- NOTE | 2020-08-02 11:41 | NUR ---
ASSEMBLY HAND MRS HOSKINS UPDATE ON PT D/C.
--- NOTE | 2020-08-02 12:02 | NUR ---
PT RESTING IN SEMI FOWLERS POSITION. PT REMAINS A/O WITH SOME CONFUSION. #22G IN RFA INFUSING WITH IV ANTIBIOTICS, SITE REMAINS HEALTHY AND PATENT.TELE MONITORING IN PLACE. PT AWARE OF PENDING DC DUE TO [facility] OBTAINED HOME OXYGEN. MRS HOSKINS, CAREGIVER, HAS BEEN NOTIFIED. PT DENIES OF ANY PAINS OR DISOCMFORTS AT THIS TIME. ALL SAFETY PRECAUTIONS ARE IN PLACE WITH CALL LIGHT IN REACH. WILL CONTINUE TO MONITOR.
--- NOTE | 2020-08-02 13:22 | NUR ---
PT C NAD. VSS. BBS= RHO/DIM. NO C/O DISCOMFORT OR DISTRESS. SAYS BREATHING IS 'DOING GOOD, STILL BREATHING". DESIGN MANAGER TO MONITOR.
[2020-08-02 14:43] VITALS: BP 143/94
[2020-08-02] MEDS ORDERED: METRONIDAZOLE500 MG PO (15:15)
--- NOTE | 2020-08-02 15:18 | NUR ---
FUEL CELL BUILDER INFORMED THAT POST DOCTORAL RESEARCHER MRS HOSKINS HAS NOT YET RECIEVED OXYGEN. NOTFIED BY CM THAT DELIVERY OF OXYGEN BY [facility] WOULD BE LATER TONIGHT, NO SPECIFIC TIME GIVEN. PT INFORMED.
--- NOTE | 2020-08-02 15:37 | NUR ---
PT RESTING IN SEMI FOWLERS POSITION. RESPIRATIONS ARE EVEN AND UNLABORED ON 2L NC. PT TO BE DC HOME WITH FLAGYL PO. TELE MONITORING IN PLACE. PT DENIES OF ANY PAINS OR DISCOMFORTS AT THIS TIME. ALL SAFETY PRECAUTIONS ARE IN PLACE WITH CALL LIGHT IN REACH. WILL CONTINUE TO MONITOR.
--- NOTE | 2020-08-02 15:59 | NUR ---
MRS GATO CALLED AND INFORMED OF FLAGYL ADDED TO MEDICATIONS. CAREGIVER REEDUCATED ON ALL DC INSTRUCTIONS AND NEW MEDICATIONS.VERBALIZED UNDERSTANDNG. PT EDUCATED ON DC INSTRUCTIONS AND NEW MEDICATIONS. AWAITING FOR DELIEVER OF HOME OXYGEN TO HOME SO CAREGIVER CAN BRING TO HOSPITAL FOR DC.
--- NOTE | 2020-08-02 17:41 | NUR ---
ROCK PICKER NOTIFIED BY MRS HOSKINS (CAREGIVER) THAT OXYGEN COMPANY HAD INFORMED HER THAT THEY WERE ABOUT 40 MIN FROM DROPPING O2 OXYGEN.
--- NOTE | 2020-08-02 18:24 | NUR ---
PER CAREGIVER, [facility] SETTING UP O2 AT HOME, AND IS TO COME AFTER WITH PORTABLE O2.
--- NOTE | 2020-08-02 19:28 | NUR ---
PT DISCHARGED FROM UNIT AT [facility]. PT ESCORTED DOWN BY MS STAFF. OXYGEN TANK SET AT 2L VIA NC SENT WITH PT AT DISCHARGE. ALL BELONGINGS SENT WITH PT. DISCHARGE INSTRUCTIONS WERE GIVEN TO THE CG AND THE PT BY PRIOR ASSIGNED NURSE FROM DAY SHIFT. PT DENIED ANY FURTHER QUESTIONS OR CONCERNS
--- NOTE | 2020-08-07 10:49 | NUR ---
Pneumonia post discharge call completed today, 08/07/20. Pt. states he is doing fairly well and has had no fever, chills, SOB since discharge. Medications were received at discharge and are being taken without incident. Pt. states he did not receive nebulizer machine and has not been doing nebullizer treatments. Sales Trainer informed me she has attempted to contact the patient b2b outside sales representative at [facility] but has not recieved a return call to date. CM will make another attempt to contact [facility] rep today. Pt. had no other questions or concerns at this time. Pt. is awaiting ca;; ochoa, gideon [facility] coordinatoir to make a follow up apt..
== END 2020-08-02 19:10 | disposition home health service (06) | DRG 291 ==
LOC: ED 08:14 → ED-I 12:54 → ED 13:38 → ICU 13:39 → MS2 07-31 16:36
PROVIDERS: Emergency Medicine; Nurse Practitioner; ADMIT Internal Medicine; ATTEND Internal Medicine
PROC: 3E0234Z Introduction of Serum, Toxoid and Vaccine into Muscle, Percutaneous Approach (ICD-10-PCS; principal; 2020-07-30)
DX: I13.0 Hypertensive heart and chronic kidney disease with heart failure and stage 1 through stage 4 chronic kidney disease, or unspecified chronic kidney disease (principal); J18.9 Pneumonia, unspecified organism; J96.01 Acute respiratory failure with hypoxia; I50.23 Acute on chronic systolic (congestive) heart failure; N17.9 Acute kidney failure, unspecified; I16.0 Hypertensive urgency; E11.22 Type 2 diabetes mellitus with diabetic chronic kidney disease; N18.30 Chronic kidney disease, stage 3 unspecified; J43.9 Emphysema, unspecified; I25.10 Atherosclerotic heart disease of native coronary artery without angina pectoris; N40.0 Benign prostatic hyperplasia without lower urinary tract symptoms; R19.7 Diarrhea, unspecified; E11.65 Type 2 diabetes mellitus with hyperglycemia; T38.0X5A Adverse effect of glucocorticoids and synthetic analogues, initial encounter; Z88.5 Allergy status to narcotic agent; Z90.2 Acquired absence of lung [part of]; Z87.891 Personal history of nicotine dependence; Z79.4 Long term (current) use of insulin; Z95.1 Presence of aortocoronary bypass graft; Z85.118 Personal history of other malignant neoplasm of bronchus and lung; Z23 Encounter for immunization; Z20.822 Contact with and (suspected) exposure to COVID-19
CPT/HCPCS: G0378; J1650; Q9967

== ENCOUNTER 2021-03-19 11:31 | Inpatient (IN) | payer OTHER, MEDICARE ==
[~2021-03-19] VITALS: Ht 190.5 cm; Wt 70.0 kg
[~2021-03-19 11:31] MED LIST changes: +ASPIRIN81 MG PO; +B-12 TR 1000 MC1 TAB PO; +BACLOFEN5 MG PO; +CALCIUM 600 +600 MG PO; +D32000 UNIT PO; +DOCQLACE100 MG PO; +DOXYCYCL HYC100 MG PO; +IPRATROPIU0.5 MG/3 M IN; +IRON325 M1 PO; +ISOSORBIDE MONO60 MG PO; +LANTUS100 UNIT SC; +LASIX 20 MG TAB20 MG PO; +LOSARTAN POTASS50 MG PO; +MEDDOSEPAK PO; +METRONIDAZOLE500 MG PO; +PRESERVISION AREDS 2 PO; +PRILOSEC20 MG/CAP PO; +TRAZODONE50 MG PO; +TYLENOL500 MG PO
--- NOTE | 2021-03-19 11:31 | NUR ---
PT ARRIVES VIA STRETCHER WITH EMS IN NO DISTRESS
--- NOTE | 2021-03-19 11:45 | NUR ---
PT NOTED TO HAVE NO TOENAILS TO SECOND TOE BOTH FEET, AREA IS ABRAISED ADN SLIGHTLY OPEN, NO SWELLING OR REDNESS NOTED PT STATES "I HIT THEM LAST WEEK AND THEY FELL OFF.
--- NOTE | 2021-03-19 12:30 | NUR ---
PT RESTING INTERMITTENTLY WITH EYES CLOSED IN NO DISTRESS
--- NOTE | 2021-03-19 13:15 | NUR ---
PT RETURNED FROM CT YELLING WITH LABORED BREATHING GRABBING LT OUTER RIB AREA SAYING HE HAS PAIN, TACHYPNEIC. O2 SAT 89% ON RA, APPLIED O2@2LPM VIA NC EDP NOTIFIED AND DUONEB GIVEN, PAIN MEDS GIVEN UPON RETURN TO ED.
--- NOTE | 2021-03-19 13:38 | NUR ---
PT RESTING COMFORTABLY AT THIS TIME
--- NOTE | 2021-03-19 14:20 | NUR ---
RESTING COMFORTABLY WITH EYES CLOSED, ROUSES EASILY. O2@2LPM VIA NC.
[2021-03-19 14:44] LABS: ALBUMIN 3.5 g/dL (3.2-5.0); CREATININE 1.9 mg/dL (0.7-1.3); POTASSIUM 3.7 mmol/l (3.5-5.1); TOTAL PROTEIN 6.8 g/dL (6.3-8.2)
[2021-03-19 14:48] LABS: BILIRUBIN, TOTAL 0.6 mg/dL (0.0-1.4)
[2021-03-19 14:51] LABS: HEMATOCRIT 39.5 % (39.0-50.0); HEMOGLOBIN 12.4 g/dl (14.0-18.0); IMMATURE GRANULOCYTES 0.7 % (0.0-5.0); MEAN CELL VOLUME 91.6 fL CALC (80.0-100.0); MEAN CORPUSCULAR HGB 28.8 pG CALC (26.0-32.0); MEAN CORPUSCULAR HGB CONC 31.4 g/dL CAL (32.0-36.0); NEUT# 6.85 thou/uL (1.82-7.42); RED BLOOD COUNT 4.31 mill/uL (4.70-6.10); RED CELL DISTRI WIDTH 15.9 % (11.5-15.5)
--- NOTE | 2021-03-19 15:10 | NUR ---
PT ROUSABLE IN NO DISTRESS, PT AGREED TO STRAIGHT CATH URINE, OBTAINED WITHOUT DIFFICULTY.
[2021-03-19 15:21] LABS: URINE BILIRUBIN - DIPSTICK NEGATIVE (NEGATIVE); URINE BLOOD DIPSTICK TRACE-LYSED (NEGATIVE); URINE COLOR YELLOW; URINE GLUCOSE - DIPSTICK >=1000 mg/dL (NEGATIVE); URINE KETONE NEGATIVE (NEGATIVE); URINE LEUK ESTERASE NEGATIVE (NEGATIVE); URINE PROTEIN - DIPSTICK 100 mg/dL (NEG-TRACE); URINE UROBILINOGEN - DIPSTICK 0.2 E.U./dL (0.2)
[2021-03-19 15:22] LABS: URINE EPITHELIAL CELLS FEW EPI/hpf (0-FEW); URINE MUCUS MODERATE hpf (NONE-FEW); URINE NITRITE - DIPSTICK NEGATIVE (Negative); URINE RBC 0-2 RBC/hpf (0-5)
--- NOTE | 2021-03-19 16:09 | NUR ---
DR BAEZ AT BEDSIDE, CONCERNED WITH PTS GROGGYNESS, ROUSES TO LOUD VOICE , RESPONDS APPROPRIATELY. SPEECH SLIGHTLY SLURRED. ALERT AND OREINTED TO PERSON AND PLACE. NO RESP DISTRESS NOTED. STROKE ALERT CALLED BY PT HAD CT BRAIN AND CTA DECLINED BY EDP CREATININE WAS 1.9
--- NOTE | 2021-03-19 18:05 | NUR ---
PPATIENT SEEN IN ED FOR NEUROO ROUNDING. PATIETN HAS NO FOCAL NEURO DEFICITS AT THIS TIME. SWALLOW EVAL PPERFORMED AND PASSED PATIENT HHAD NO DIFFICULTY SWALLOWING WATER THICHENED LIQUIDS OR PUDDING. PATIENT DENIES ANY PAIN AT THIS TIME. PATIENT HAS NO VERTICAL OR HORIZONTAL NYSTAGMUS NOTED AT THIS TIME. PATIENT HAS NO POSITIVE TEST OF SKEW. CRANIAL NERVE 8 INTACT USING TUNING FORK PATIET REACTED BILATERALLY. CRANIAL NERVE 7 INTACT PATIENT ABLE TO RAISE EYEBROWS AND SMILE EQUAL SIDE TO SIDE AND BILATERALLY. CRANIAL NERVE 5 INTACKK USING ORANGE STICK PATIENT WITHDRAWLS BILATERALLY AND STATES SENSATION THE SAME FROM SIDE TO SIDE. CRANIAL NERVE 3 INTACT PATIENT ABLE TO FOLLOW TIP OF PINLIGHT VERTICALLY AND HORIZONTALLY. CRANIAL NERVE 1 INTACT PPATIENT TESTED USING HAND SOAP FROM NOSTRIL TO NOSTRIL WITH EYES CLOSED. PATIENT STATES SMELLS EQUALLY FROM NARE TO NARE. PATIENT HAS NO DRIFTS, NO ATAXIA, NO ASPHASIA OR DYSARTHRIA. PATIENT ABLE TO IDENTIFY OBJECTS WITHOUT DIFFICULTY. NIHSS 0 AT THIS TIME
--- NOTE | 2021-03-19 18:54 | NUR ---
REPORT CALLED TO JASMIN LOERA.
--- NOTE | 2021-03-19 19:07 | NUR ---
Admission Note Report Given to: Transported by: Wheelchair X Stretcher Transported with: X Nurse Transporter X Patent IV O2 X Neurodiagnostic Tech Location: ICU X MS2
--- NOTE | 2021-03-19 19:15 | NUR ---
PT RECEIVED FROM ED TO ROOM 267. ARRIVES VIA STRETCHER ACCOMPANIED BY RN. PT AMBULATORY TO BED. GAIT UNSTEADY. PT DENIES PAIN AT THIS TIME. ORIENTED TO UNIT, ROOM, CALL ROONEY, LIGHTS, TV. ICE WATER PROVIDED. CALL ROONEY WITHIN REACH. AGREES TO CALL PRN.
[2021-03-19 19:17] VITALS: BP 200/92
--- NOTE | 2021-03-19 23:30 | NUR ---
PHYSICAL ASSESMENT COMPLETE. PT CURRENTLY C/O OF LEFT SIDE FLANK PAIN. SCHEDULED MEDICATIONS AND PRN MEDICATION ADMINISTERED, SEE E-MAR. PT HAS ONLY RIGHT-SIDE LUNG AND HAS DIFFICULTY BREATHING WHEN EXERTING HIMSELF. PT ON 5 LITERSO OF O2 AND STATING AT 93%. PT DENIES ANY NEEDS AT THIS TIME. PLAN OF CARE REVIEWED, PT DENIES QUESTIONS, VERBALIZES UNDERSTANDING. ITEMS WITHIN REACH, BED LOCKED IN LOW POSITION W/ BEDRAILS UP X2. CALL ROONEY WITHIN REACH, AGREES TO CALL PRN.
[2021-03-20] VITALS: BP 121/82
[2021-03-20 04:00] VITALS: BP 162/80
[2021-03-20 06:30] LABS: HEMATOCRIT 43.1 % (39.0-50.0); HEMOGLOBIN 13.3 g/dl (14.0-18.0); IMMATURE GRANULOCYTES 0.1 % (0.0-5.0); MEAN CELL VOLUME 92.7 fL CALC (80.0-100.0); MEAN CORPUSCULAR HGB 28.6 pG CALC (26.0-32.0); MEAN CORPUSCULAR HGB CONC 30.9 g/dL CAL (32.0-36.0); NEUT# 7.91 thou/uL (1.82-7.42); RED BLOOD COUNT 4.65 mill/uL (4.70-6.10); RED CELL DISTRI WIDTH 16.2 % (11.5-15.5)
[2021-03-20 07:05] LABS: ALBUMIN 3.4 g/dL (3.2-5.0); BILIRUBIN, TOTAL 0.6 mg/dL (0.0-1.4); C-REACTIVE PROTEIN 1.2 mg/dL (0-0.9); CREATININE 1.9 mg/dL (0.7-1.3); POTASSIUM 3.8 mmol/l (3.5-5.1); TOTAL PROTEIN 6.7 g/dL (6.3-8.2)
--- NOTE | 2021-03-20 08:00 | NUR ---
PT AWAKE AND ALERT UPON ENTERING ROOM. STATES SLIGHT PAINN ON RIGHT RIB. ASSESSMENT AND VITALS ALLOWED AT THIS TIME. LUNG SOUND ON ON RIGHT LUNG CLEAR UPPER/LOWER LOBE ANTERIOR AND POSTERIOR. HEART SOUNDS ARE REGULAR. TELE MONITOR IN PLACE, CONTINOUS MONITORING BY ED. BOWEL SOUNDS ACTIVE X4. RADIAL PULSE STRONG BILATERALLY. PEDAL PULSES WEAK. SECOND TOES OF FEET BILATERALLY, REALLY RED. PT STATES FROM HITTING IT. STATES NO PAIN IN THE AREA. STAGE 1 PRESSURE SORE IN COCCYX AREA. ACCUCHECK THIS MORNING 133 NO COVERAGE NEEDED PER SLIDING SCALE. STATES NO OTHER NEEDS AT THIS TIME. FALL/SAFTEY PRECAUTIONS IN PLACE. CALL LIGHT WITHIN REACH.
[2021-03-20 10:45] VITALS: BP 141/55
--- NOTE | 2021-03-20 11:00 | NUR ---
PT DOWN TO CT VIA WC WITH O2 AT THIS TIME ACCOMPANIED BY CHINYERE AGUERO
--- NOTE | 2021-03-20 13:08 | NUR ---
PT EATING LUNCH AT THIS TIME. STATES NO PAIN AT THIS TIME. O2 VIA NC @4L. TELE MONITOR IN PLACE. IV PATENT INFUSING NS PER EMAR. ACCUCHECK @1100 135 NO COVERAGE NEEDED AT THIS TIME PER SLIDING SCALE. STATES NO OTHER NEEDS AT THIS TIME. CALL LIGHT WITHIN REACH. FALL/SAFTEY PRECAUTIONS IN PLACE.
[2021-03-20 15:00] VITALS: BP 157/95
--- NOTE | 2021-03-20 16:32 | NUR ---
PT RIPPED OUT IV, EXPIERENCING AFFECT. REIORIENTATED PT TO PERSON/TIME/PLACE. PT IN A SILLY MOOD. BUT UNDERSTOOD AFTER REORIENTATION. NEW IV ESABLISHED BY LUZ MARIA MATUTE ON LEFT ARM 22G, FLUSHED WITH BLOOD RETURM. CALL LIGHT WITHIN REACH. FALL/SAFTEY PRECAUTION IN PLACE. CALL LIGHT WITHIN REACH.
[2021-03-20 19:00] VITALS: BP 144/87
--- NOTE | 2021-03-20 20:00 | NUR ---
PHYSICAL ASSESMENT COMPLETE. PT CURRENTLY DENIES PAIN OR DISCOMFORT. PT CONFUSED AT TIMES. PT REORIETED AND REASSURED OF HIS LOCATION. SCHEDULED MEDICATIONS AND PRN MEDICATION ADMINISTERED, SEE E-MAR. PT DENIES ANY NEEDS AT THIS TIME. PLAN OF CARE REVIEWED, PT DENIES QUESTIONS, VERBALIZES UNDERSTANDING. ITEMS WITHIN REACH, BED LOCKED IN LOW POSITION W/ BEDRAILS UP X2. CALL ROONEY WITHIN REACH, AGREES TO CALL PRN.
[2021-03-21] VITALS: BP 142/76
--- NOTE | 2021-03-21 02:44 | NUR ---
PT LAYING IN BED WITH EYES CLOSED, APPEARS TO BE SLEEPING, APPEARS COMFORTABLE AND IN NO DISTRESS. RESPIRATIONS REGULAR AND UNLABORED. ITEMS REMAIN WITHIN REACH, CALL ROONEY REMAINS WITHIN REACH. BED REMAINS LOCKED AND IN LOW POSITION WITH BEDRAILS UP X2. WILL CONTINUE TO MONITOR.
[2021-03-21 04:00] VITALS: BP 140/90
[2021-03-21 06:12] LABS: HEMATOCRIT 44.3 % (39.0-50.0); HEMOGLOBIN 13.4 g/dl (14.0-18.0); IMMATURE GRANULOCYTES 0.2 % (0.0-5.0); MEAN CELL VOLUME 95.5 fL CALC (80.0-100.0); MEAN CORPUSCULAR HGB 28.9 pG CALC (26.0-32.0); MEAN CORPUSCULAR HGB CONC 30.2 g/dL CAL (32.0-36.0); NEUT# 11.24 thou/uL (1.82-7.42); RED BLOOD COUNT 4.64 mill/uL (4.70-6.10); RED CELL DISTRI WIDTH 16.6 % (11.5-15.5)
--- NOTE | 2021-03-21 06:30 | NUR ---
PT WC/O OF CHEST PAIN WITH SHALLOW BREATHING. PT REPORTS A 10/10 PAIN AND STATES IT IS UNBEARABLE. PT STATES IT FEELS LIKE WHEN HE HAD A HEART ATTACK. VITALS TAKEN BP 147/94, PULSE 115, O2 93%, RR 21, TEMP 97.3. MONITOR ROOM REPORTS AN SINUS ARRHYHMIA WITH A RATE OF 124. ORDERED A STAT EKG. PT WAS YELLING IN PAIN. RAPID RESPOSE WAS CALLED AT 0635. STATs TROPOINS ORDERED. EKG REVEALED AFIB WITH RAPID VENTRICULAR RESPONSE WITH PREMAATURE VENTRICULAR OR ABERRANTLY CONDUCTED COMPLEXES. 02 ADVANCED TO 4 LITERS. PTS PAIN SUBSIDED AT AT 0700. PTS VITALS RETURNED TO NORMAL AND LEVEL WAS REPORTED AT A 3. DR PRESSLEY WAS CONTACTED BY PHONE AT 0732 AND ADVISED OF RAPID RESPONSE. DR PRESSLEY WAS ADVISED THAT STAT EKG AND TROPOINS WERE ORDERED AND APPRISED OF AVAILABLE RESULTS. ORDERED CLOSE MONITORING AND WOULD REVEIW RESULTS WHEN HE ARRIVED AT [facility]. 0740 PT WAS SEEN WITH NO REPORTED PAIN AND STATES THAT HE IS HIMSELF AGAIN.
[2021-03-21 06:35] LABS: ALBUMIN 3.1 g/dL (3.2-5.0); BILIRUBIN, TOTAL 0.5 mg/dL (0.0-1.4); CREATININE 1.8 mg/dL (0.7-1.3); POTASSIUM 4.3 mmol/l (3.5-5.1); TOTAL PROTEIN 6.2 g/dL (6.3-8.2)
--- NOTE | 2021-03-21 08:00 | NUR ---
PT AWAKE IN BED IN BED IN SEMI MONTEMAYOR POSTITON. PT IS ABLE TO TELL ME THEIR NAME BUT CAN NOT RECALL WHERE HE IS AT. RIGHT LUNG IS CLEAR UPON AUSCULATION ANTERIOR AND POSTERIOR. PT HAD A LEFT PNEUMONECTOMY. HEART SOUNDS ARE REGULAR. TELE MONITOR IN PLACE, CONTINOUS MONITORING BY ED. BOWEL SOUNDS ACTIVE X4. PT HAS STAGE 1 SORE ON COCCYX. SECOND TOE ON FEET BILATERAL REALLY DARK RED. PT STATES DOES NOT FEEL THEM. ACCUCHECK THIS MONRING 123. NO COVERAGE NEEDED PER SLIDING SCALR. PT ANXIOUS WITH HIS BREATHING. GAVE VERBAL RELAXATION CUES. PT CALMED DOWN. PT IS ON O2 @3L VIA NC. STATES NO OTHER NEEDS AT THIS TIME. CALL LIGHT WITHIN REACH.
--- NOTE | 2021-03-21 09:09 | NUR ---
Patient has been seen by PT and OT is recommended as well if medical agrees
[2021-03-21 10:30] VITALS: BP 144/89
--- NOTE | 2021-03-21 15:12 | NUR ---
OT SCREEN COMPLETE: PATIENT APPEARED CONFUSED, NEUROLOGIC TESTING REVEALED DECREASED COORDINATION, AND MAY BENEFIT FROM OT EVAL FOR FURTHER TESTING.
[2021-03-21 15:23] VITALS: BP 121/82
--- NOTE | 2021-03-21 16:00 | NUR ---
PT SLEEPING AT THIS TIME. BREATHING IS EVEN AND UNLABORED. TELE MONITOR IN PLACE. IV PATENT. CALL/SAFETY PRECAUTIONS IN PLACE. CALL LIGHT WITHIN REACH
[2021-03-21 18:57] VITALS: BP 175/89
--- NOTE | 2021-03-21 19:09 | NUR ---
RECEIVED CALL FROM ER PT SUSTAINING HR IN THE 120'S, [employer] REPOSSESS[employer]ICER REFORMATORY NOTIFIED AND ORDERS OBTAINED. PT RESTING IN BED, DENIES ANY PAIN OR NEEDS AT THIS TIME, 02 3L NC, SATS 98, PT HAS A SMALL OPEN AREA TO BUTTOCK, NOTED HIS SECOND METATARSALS TO FEET BILAT IS BLOODY, PT STATES HE BROKE THEM FROM HITTING THEM FREQUENTLY, SEE CHART FOR PHOTOS. ASSESSMENT REVIEW COMPLETED, CALL LIGHT IN REACH,CONTINUE TO MONITOR.
--- NOTE | 2021-03-21 19:55 | NUR ---
LABETALOL IV ADMISNITERED BY WRITTER, PT SUSTANING HR ABOVE 120'S. B/P 175/89. CALL PLACED TO ER INQUIRING UPDATED ON HR AFTER ADMINISTRATION, NO ANSWER FROM ER.
--- NOTE | 2021-03-21 20:11 | NUR ---
RECEIVED CALL FROM ED PT HAD A 11-BEAT RUN OF VTACH. CLOCK SMITH NOTIFED, PT DENIES ANY CP OR COMPLAINTS AT THIS TIME. ORDERS ENTERED VIA CPOE. CALL LIGHT IN REACH,CONTINUE TO MONITOR.
[2021-03-21 21:11] VITALS: BP 145/84
[2021-03-22 00:03] VITALS: BP 140/74
--- NOTE | 2021-03-22 00:12 | NUR ---
PT CALLED C/O HEADACHE, ENTERED ROOM PT RESTING IN BED, MEDICATED WITH TYLENOL, PILLOWS PROVIDED FOR COMFORT. NO SIGNS OF DISTRESS NOTED, RESP EVEN AND UNLABORED. PT REMAINS ON NC, CALL LIGHT IN REACH,CONTINUE TO MONITOR.
--- NOTE | 2021-03-22 03:25 | NUR ---
PT RESTING IN BED BED ON HIS R SIDE, NO SIGNS OF DISTRESS NOTED, RESP EVEN AND UNLABORED. PT C/O L CHEST PAIN 08/16 STATES,"SAME LAST NIGHT" STAT EKG ORDERED. NOTIFIED CAR PILOT AND ORDERS RECEIVED. PT STABLE, VITALS OBTAINED, BP 157/96 HR SR PVCs 88 SPO2 96% ON 3L NC, CALL LIGHT IN REACH,CONTINUE TO MONITOR.
[2021-03-22 03:55] VITALS: BP 157/96
[2021-03-22 07:49] VITALS: BP 145/89
--- NOTE | 2021-03-22 08:18 | NUR ---
Late entry for 03-21-21. S- pt c/o fatigue 0- Pt seen in am and contacted nursing prior to treatment. He was resting in bed. LE ex performed A/AAROM in supine x 10 reps. Pt moved supine to sit with min/mod assist x1. Sit to stand with min assist x 2 and then another time and transferred to BS chair. Pt was left in chair with call sales and tray in reach. Pt reminded to have assist with mobility. BP 144/87, HR in 80's, 02sats 98-95%. time spent with pt 30 min A- [facility] 12 ECF P- will follow
[2021-03-22 09:20] LABS: CREATININE 1.7 mg/dL (0.7-1.3)
[2021-03-22 09:26] LABS: MAGNESIUM 2.8 mg/dL (1.6-2.3)
[2021-03-22 09:40] LABS: HEMATOCRIT 41.8 % (39.0-50.0); HEMOGLOBIN 12.5 g/dl (14.0-18.0); IMMATURE GRANULOCYTES 0.1 % (0.0-5.0); MEAN CELL VOLUME 96.1 fL CALC (80.0-100.0); MEAN CORPUSCULAR HGB 28.7 pG CALC (26.0-32.0); MEAN CORPUSCULAR HGB CONC 29.9 g/dL CAL (32.0-36.0); NEUT# 8.58 thou/uL (1.82-7.42); RED BLOOD COUNT 4.35 mill/uL (4.70-6.10); RED CELL DISTRI WIDTH 16.6 % (11.5-15.5)
--- NOTE | 2021-03-22 10:22 | NUR ---
PT IS AWAKE,ALERT, ORIENTED X 3. LUNGS DIMINISHED WITH WHEEZING IN THE BASES. PT DID HAVE CHEST PAIN, WANTED OXYGEN UP TO 5 LPM. NO BM DOCUMENTED SINCE 03-19, NEW ORDERS RECEIVED FOR PERICOLACE AND MOM, BOTH GIVEN. PT ADVISED TO CALL IF HE NEEDS TO GET OOB. PT SEEN BY DR PRESSLEY AND IGLESIA BARRIOS, MAINTAIN THE COURSE.
[2021-03-22 10:29] VITALS: BP 138/78
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
--- NOTE | 2021-03-22 14:02 | NUR ---
S- initially without complaints voice, but after rolling and being move up in bed 6/10 pain in chest (nurse in room and aware 0- Pt in bed supine with wet brief. Brief changed with rolling side to side with min assist. total assist to move up in bed. Pt BP 133/84 HR 79, 02 sat 98%. After rolling and brief change he c/o pain with vs re checked BP 140/90, HR 79, 02 sat 93%. Pt did not want to continue with treatment at this time. Time spent with pt 20 min. A- Pt unable to participate as much today. [facility] 12 E[facility] P- will follow per POC.
[2021-03-22 15:26] VITALS: BP 140/90
--- NOTE | 2021-03-22 16:45 | NUR ---
nurse notified of patient accucheck is 60
--- NOTE | 2021-03-22 19:45 | NUR ---
PATIENT RESTING IN BED QUIETLY. ALERT WITH CONFUSION AT TIMES. DURING SHIFT THIS NURSE WAS INFORMED THAT THE PATIENT HAD NO IV SITE. WILL ATTEMPT TO START ANOTHER IV SITE. ASSESSMENT COMPLETE. PATIENT LIKES TO SIT ON SIDE OF BED AT TIMES. REDIRECTED TO BE CAREFUL AND ASK FOR HELP DUE TO SAFETY PURPOSES. CALL LIGHT AND BELONGINGS WITHIN REACH.
[2021-03-22 20:00] VITALS: BP 156/90
--- NOTE | 2021-03-22 21:30 | NUR ---
NEW IV SITE #24 TO RIGHT UPPER CHEST INSERTED BY Fareed NEIL RN.
--- NOTE | 2021-03-23 00:20 | NUR ---
PATIENT LAYING IN BED ON RIGHT SIDE. OBSERVED WITH COVERS OFF. PATIENT STATED ''I PUT THEM ON AND OFF''. DENIES ANY NEEDS AT THIS TIME. DOES TEND TO YELL OUT AT TIMES. CONFUSION AT TIMES WELL. REMINDED PATIENT TO LEAVE IV SITE ALONE. CALL LIGHT AND BELONGINGS REMAIN IN REACH.
[2021-03-23 00:30] VITALS: BP 148/74
--- NOTE | 2021-03-23 00:50 | NUR ---
ED CALLED INFORMING PATIENTS HR WAS IN THE 40'S ON TELE. THIS NURSE WENT TO PATIENTS ROOM TO CHECK. PATIENTS POSITION CHANGED. CALLED ED TO CHECK PATIENTS HR. HR RATE SUSTAINING IN THE 70'S. PATIENT ASYMPTOMATIC.
[2021-03-23 04:00] VITALS: BP 130/61
--- NOTE | 2021-03-23 04:20 | NUR ---
PATIENT LAYING ON RIGHT SIDE. NO SIGNS OF DISTRESS NOTED AT THIS TIME. NO MORE COMPLAINTS OF NAUSEA VOICED. REMINDED PATIENT TO USE CALL LIGHT FOR ASSISTANCE. TAKES OXYGEN AND BLANKETS OFF AT TIMES. CALL LIGHT AND BELONGINGS REMAIN IN REACH.
--- NOTE | 2021-03-23 08:00 | NUR ---
REPORT RECEIVED FROM LUZ MARIA WINN. PT AWAKE ALERT AND PLEASANTLY CONFUSED. VSS, CALL LIGHT WITHIN REACH. BED ALARM ON PT. INSTRUCTED PT TO CALL FOR ASSISTANCE. WILL CONTINUE TO MONITOR.
[2021-03-23 08:03] LABS: HEMOGLOBIN 13.1 g/dl (14.0-18.0); IMMATURE GRANULOCYTES 0.3 % (0.0-5.0); MEAN CELL VOLUME 92.9 fL CALC (80.0-100.0); MEAN CORPUSCULAR HGB CONC 31.2 g/dL CAL (32.0-36.0); NEUT# 7.04 thou/uL (1.82-7.42); RED BLOOD COUNT 4.52 mill/uL (4.70-6.10); RED CELL DISTRI WIDTH 16.3 % (11.5-15.5)
[2021-03-23 08:16] VITALS: BP 166/99
[2021-03-23 09:16] LABS: BILIRUBIN, TOTAL 0.4 mg/dL (0.0-1.4); C-REACTIVE PROTEIN 1.4 mg/dL (0-0.9); CREATININE 1.6 mg/dL (0.7-1.3)
[2021-03-23 09:21] LABS: POTASSIUM 5.1 mmol/l (3.5-5.1)
[2021-03-23 11:52] VITALS: BP 97/58
--- NOTE | 2021-03-23 12:00 | NUR ---
PT RESTING WITH EYES CLOSED. REFUSING TO EAT BREAKFAST AND LUNCH. HELD INSULIN AT THIS TIME BLOOD GLUCOSE IS 153. WILL CONTINUE TO MONITOR. DENIES NEEDS OR CONCERNS. WILL CONTINUE TO MONITOR.
--- NOTE | 2021-03-23 14:00 | NUR ---
PT FOUND TO BE OOB AND WALKING AROUND THE ROOM, IV REMOVED BY PATIENT, OXYGEN OFF AND TELEMETRY OFF. PT SAFELY ASSISTED TO THE BED. OXYGEN RE-APPLIED, IV RE-STARTED AND BED ALARM PLACED ON PATIENT. CALL LIGHT WITHIN REACH. RE-ORIENTATED PT, PT STATES "I WAS JUST SO CONFUSED WHEN I WOKE UP." PT ON CAMERA.
--- NOTE | 2021-03-23 16:00 | NUR ---
PT RESTING IN BED WITH EYES CLOSED. BED ALARM REMAINS ON. NO FURTHER ATTEMPTS TO GET OOB MADE. WILL CONTINUE TO MONITOR.
[2021-03-23 16:45] VITALS: BP 122/59
--- NOTE | 2021-03-23 17:44 | NUR ---
Subjective: Patient feels tired and sluggish, didn't sleep well last night. Objective: Patient participated with the following: Patient did supine B LE AROM exercises: SLR, hip adduction and abduction, ankle pumps, hip and knee flexion and extension, and gluteal squeezes for 5 reps each at 3 sets with 2 minute rest breaks. Patient also did bed mobility/log rolling technique with 2 to 3 attempts with sluggish demeanor and constant verbal and tactile cuing to decrease fall risks. Assessment: Patient struggling with initiating bed mobility and transfer ADLs secondary to persisting muscle weakness and poor body mechanics. Patient will need to continue with PT intervention to help improve functional participation in carrying out ADLs. Plan: Patient Am Pac score presently at 9 points based on patient participation in carrying out ADLs today, discharge recommendation will be extended care placement and I agree with this recommendation.
--- NOTE | 2021-03-23 19:45 | NUR ---
PATIENT RESTING IN BED ON HIS RIGHT SIDE. ASSESSMENT COMPLETE. NO COMPLAINTS OF PAIN OR DISCOMFORT VOICED. CALL LIGHT AND BELONGINGS REMAIN IN REACH.
[2021-03-23 20:00] VITALS: BP 136/69
--- NOTE | 2021-03-23 21:30 | NUR ---
PATIENT DRANK GLASS OF OJ AND TOOK A FEW BITES OF A CEREAL BAR.
[2021-03-24] VITALS: BP 119/65
--- NOTE | 2021-03-24 00:30 | NUR ---
PATIENT RESTING IN BED QUIETLY. AMBULATED WITH CHILDREN'S [employer]IST[employer] DIRECTOR TO BATHROOM EARLIER, HAD LARGE BOWEL MOVEMENT. NO COMPLAINTS VOICED AT THIS TIME. CALL LIGHT AND BELONGINGS REMAIN IN REACH. BED ALARM REMAINS ACTIVE.
[2021-03-24 04:00] VITALS: BP 136/73
--- NOTE | 2021-03-24 04:10 | NUR ---
PATIENT RESTING IN BED LAYING ON HIS RIGHT SIDE. NO COMPLAINTS OF PAIN VOICED. NO SHORTNESS OF BREATH OBSERVED. PATIENT DID UTILIZE THE CALL LIGHT DURING THE NIGHT ASKING FOR ASSISTANCE. BED ALARM REMAINS ACTIVE. CALL LIGHT AND BELONGINGS REMAIN IN PATIENTS REACH.
[2021-03-24 05:59] LABS: HEMATOCRIT 43.8 % (39.0-50.0); HEMOGLOBIN 12.8 g/dl (14.0-18.0); IMMATURE GRANULOCYTES 0.2 % (0.0-5.0); MEAN CELL VOLUME 98.2 fL CALC (80.0-100.0); MEAN CORPUSCULAR HGB 28.7 pG CALC (26.0-32.0); MEAN CORPUSCULAR HGB CONC 29.2 g/dL CAL (32.0-36.0); NEUT# 7.94 thou/uL (1.82-7.42); RED BLOOD COUNT 4.46 mill/uL (4.70-6.10); RED CELL DISTRI WIDTH 16.2 % (11.5-15.5)
[2021-03-24 06:07] LABS: ALBUMIN 2.7 g/dL (3.2-5.0); BILIRUBIN, TOTAL 0.4 mg/dL (0.0-1.4); CREATININE 1.8 mg/dL (0.7-1.3); POTASSIUM 4.9 mmol/l (3.5-5.1); TOTAL PROTEIN 5.6 g/dL (6.3-8.2)
--- NOTE | 2021-03-24 08:00 | NUR ---
REPORT RECEIVED FROM LUZ MARIA WINN. PT AWAKE ALERT AND APPROPRIATE. VSS. PT DENIES PAIN, SOB OR DISCOMFORT. BED ALARM ON AND ACTIVATED. PT REMAINS ON CAMERA AT DESK FOR ADDISTIONAL SAFETY. WILL CONTINUE TO MONITOR.
--- NOTE | 2021-03-24 12:00 | NUR ---
WALKING TEST ATTEMPTED AT THIS TIME. PT OXYGEN REMOVED AND SPO2 DROPS TO 94% AFTER 30 MINUTES. OXYGEN RE-APPLIED. PT PLACED IN BED. DOES NOT APPEAR TO BE IN DISTRESS. BED ALARM RE-APPLIED. PATIENT REMAINS IN THE CAMERA.
--- NOTE | 2021-03-24 13:00 | NUR ---
PT SEEN ON THE CAMERA, ACTING OUT. TALKING TO PEOPLE AND SEEING PEOPLE THAT ARE NOT CURRENTLY IN ROOM. PT STATES WHEN I WENT IN "IM REALLY GOING CRAZY, AND REPEATING STATEMENT." PT RE-ORIENTATED AND RE-DIRECTED. PT REPOSITIONED AND RE-SETTLED. PT INFORMED THAT THE CAMERA HAS A VOICE OPTION AND WE ARE ABLE TO COMMUNICATE WITH HIM. WILL NEED CONTINUAL RE-DIRECTION.
[2021-03-24 15:30] VITALS: BP 112/61
--- NOTE | 2021-03-24 16:00 | NUR ---
PT REMAINS CONFUSED, BUT RE-DIRECTABLE. VSS, CALL LIGHT WITHIN REACH. DENIES PAIN, BED ALARM ON. WILL CONTINUE TO MONITOR.
--- NOTE | 2021-03-24 19:30 | NUR ---
PATIENT RESTING IN BED QUIETLY. ASSESSMENT COMPLETE. NO PAIN. NO SIGNS OF DISTRESS. LUNGS SOUNDS CLEAR. REMINDED PATIENT TO USE CALL LIGHT WHEN NEEDED ASSISTANCE FOR SAFETY PURPOSES. CALL LIGHT AND BELONGINGS REMAIN IN REACH.
[2021-03-24 21:02] VITALS: BP 136/84
[2021-03-25 00:10] VITALS: BP 132/79
--- NOTE | 2021-03-25 00:18 | NUR ---
PATIENT OBSERVED YELLING OUT. CALLED GEOSPATIAL INFORMATION TECHNOLOGIST PROVIDER. NEW ORDER RECEIVED. SEE MAR. PATIENTS BELONGINGS WITHIN REACH WELL CALL LIGHT. BED ALARM REMAINS ACTIVE.
--- NOTE | 2021-03-25 01:28 | NUR ---
PATIENT OBSERVED SLEEPING WITH EYES CLOSED. NO DISTRESS NOTED. CALL LIGHT IN REACH. BED ALARM REMAINS ACTIVE FOR SAFETY PURPOSES.
--- NOTE | 2021-03-25 02:05 | NUR ---
PATIENT REMAINS ASLEEP. OBSERVED MOVING HIS LEGS AROUND IN THE BED. NO DISTRESS NOTED. CALL LIGHT AND BELONGINGS REMAIN IN REACH. BED ALARM REMAINS ACTIVE.
[2021-03-25 04:00] VITALS: BP 140/71
--- NOTE | 2021-03-25 04:25 | NUR ---
PATIENT RESTING IN BED, AWAKE. NO COMPLAINTS VOICED AT THIS TIME. REMINDED PATIENT TO USE CALL LIGHT WHEN HE NEEDS ASSISTANCE. CALL LIGHT WITHIN REACH. BED REMAINS IN LOW POSITION. BED ALARM REMAINS ON.
[2021-03-25 05:32] LABS: HEMATOCRIT 44.5 % (39.0-50.0); HEMOGLOBIN 13.2 g/dl (14.0-18.0); IMMATURE GRANULOCYTES 0.4 % (0.0-5.0); MEAN CELL VOLUME 96.9 fL CALC (80.0-100.0); MEAN CORPUSCULAR HGB 28.8 pG CALC (26.0-32.0); MEAN CORPUSCULAR HGB CONC 29.7 g/dL CAL (32.0-36.0); NEUT# 6.03 thou/uL (1.82-7.42); RED BLOOD COUNT 4.59 mill/uL (4.70-6.10); RED CELL DISTRI WIDTH 16.1 % (11.5-15.5)
[2021-03-25 05:49] LABS: ALBUMIN 2.8 g/dL (3.2-5.0); BILIRUBIN, TOTAL 0.3 mg/dL (0.0-1.4); C-REACTIVE PROTEIN 0.9 mg/dL (0-0.9); TOTAL PROTEIN 5.8 g/dL (6.3-8.2)
[2021-03-25 08:28] VITALS: BP 143/82
--- NOTE | 2021-03-25 08:28 | NUR ---
ASSESSMENT DONE. PATIENT IS ALERT AND ORIENT X1 AND CONFUSED AT TIMES. PATIENT STATED SOB AT TIMES. O2 AT 2L VIA NC AND SATS 100%. LUNGS SOUND DIMINISHED. PATIENT DENIES PAIN. PO FLUIDS PROVIDED. CALL LIGHT IN REACH. BED ALARM IN PLACE.
[2021-03-25 11:04] VITALS: BP 113/58
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
--- NOTE | 2021-03-25 11:58 | NUR ---
PATIENT IS SITTING IN THE RECLINER WITH NO DISTRESS NOTED. TELE IN PLACE. CALL LIGHT IN REACH.
[2021-03-25 14:40] VITALS: BP 128/75
--- NOTE | 2021-03-25 15:33 | NUR ---
PATIENT PULL THE IV OUT. PATIENT STATED HE DID NOT DO IT. BRICK PICKER PROVIDED NEW BLANKET. NEW IV STARTED RW. BED ALARM IN PLACE AND CALL LIGHT IN REACH.
--- NOTE | 2021-03-25 16:49 | NUR ---
nurse was notified of patient accucheck was 76.
[2021-03-25 19:00] VITALS: BP 138/80
--- NOTE | 2021-03-25 20:00 | NUR ---
SCHEDULED MEDICATIONS AND PRN MEDICATION ADMINISTERED, SEE E-MAR. PT DENIES ANY NEEDS AT THIS TIME. PT CONFUSED AND OFTEN ONLY ALERT TO SELF. BED ALARM ACTIVATED. PLAN OF CARE REVIEWED, PT DENIES QUESTIONS. ITEMS WITHIN REACH, BED LOCKED IN LOW POSITION W/ BEDRAILS UP X2. CALL ROONEY WITHIN REACH, AGREES TO CALL PRN.
[2021-03-26] VITALS: BP 139/77
[2021-03-26 04:38] VITALS: BP 137/77
[2021-03-26 06:24] LABS: HEMATOCRIT 43.1 % (39.0-50.0); HEMOGLOBIN 12.9 g/dl (14.0-18.0); MEAN CELL VOLUME 96.2 fL CALC (80.0-100.0); MEAN CORPUSCULAR HGB 28.8 pG CALC (26.0-32.0); MEAN CORPUSCULAR HGB CONC 29.9 g/dL CAL (32.0-36.0); RED BLOOD COUNT 4.48 mill/uL (4.70-6.10)
[2021-03-26 06:35] LABS: CREATININE 2.2 mg/dL (0.7-1.3); POTASSIUM 5.4 mmol/l (3.5-5.1)
--- NOTE | 2021-03-26 08:42 | NUR ---
SHIFT CHANGE REPORT, PT AWAKE AND ALERT SITTING UP IN RECLINER, NO C/O DISCOMFORT AT THIS TIME, HAVING MEAL NOW, TELE MONITOR IN PLACE, IVF INFUSING CALL ROONEY IN REACH AND BED LOCKED IN LOWEST POSITION. PT UNABLE TO STATE TODAYS DATE BUT WAS ABLE TO FIND INFO ON PHONE AND ORIENT HIMSELF TO DATE.
[2021-03-26 08:46] VITALS: BP 149/76
[2021-03-26 10:59] VITALS: BP 130/65
--- NOTE | 2021-03-26 11:32 | NUR ---
SITTING UP IN RECLINER, VERY LETHARGIC AT THIS TIME, 6 MIN WALK TEST ORDERED BUT PT REFUSED STATING HE CANT STAND HE WILL FALL, ASSURED WE (PHYSICAL THERAPIST AND NURSE) WILL NOT ALLOW HIM TO FALL WE ARE HERE TO ASSIST HIM BUT HE STILL REFUSED. HE IS VERY LETHARGIC AT THIS TIME BUT RESPONDS APPROPRIATELY TO QUESTIONS/COMMANDS. FUR BLOWING MACHINE ATTENDANT REPORTED BEATS OF V-TACH AND SENT UP STRIPS, NOTIFIED, NO NEW ORDERS, TECH REPORTED SINUS RHYTHM IN 60'S AFTER
--- NOTE | 2021-03-26 11:42 | NUR ---
S- Pt continues to have slurred speech, sleeping off and on. 0- contacted nursing prior to treatment. Pt was in recliner with legs elevated, eyes closed. Pt had phone call from his sister and had difficulty holding phone up to his ear. Pt performed heel slides in recline position, clam shell and sitting LAQ x 10 reps. Nursing in to assist with mobility but pt refusing and not alert enough to participate in standing. BP 130/62, HR 59-60 and 02 sats 100% on 02 A- pt not able to participate well with treatment. [facility] 9 ECF P- Will follow.
--- NOTE | 2021-03-26 12:00 | NUR ---
SITTING UP IN RECLINER, STATES HE IS UNABLE TO STAND HE WILL FALL, VERY LETHARGIC, CALL ROONEY PLACE IN REACH.
[2021-03-26 15:26] VITALS: BP 118/58
--- NOTE | 2021-03-26 16:00 | NUR ---
IN BED SLEEPING, NO SIGN DISCOMFORT, CALL ROONEY IN REACH.
[2021-03-26 19:18] VITALS: BP 124/58
--- NOTE | 2021-03-26 20:00 | NUR ---
PHYSICAL ASSESMENT COMPLETE. PT CURRENTLY DENIES PAIN OR DISCOMFORT. SCHEDULED MEDICATIONS AND PRN MEDICATION ADMINISTERED, SEE E-MAR. PT REMAINS CONFUSED. BED ALARM ACTIVATED. PT DENIES ANY NEEDS AT THIS TIME. PLAN OF CARE REVIEWED, PT DENIES QUESTIONS, VERBALIZES UNDERSTANDING. ITEMS WITHIN REACH, BED LOCKED IN LOW POSITION W/ BEDRAILS UP X2. CALL ROONEY WITHIN REACH, AGREES TO CALL PRN.
[2021-03-27 00:33] VITALS: BP 111/60
[2021-03-27 04:43] VITALS: BP 132/75
[2021-03-27 05:58] LABS: HEMATOCRIT 43.4 % (39.0-50.0); HEMOGLOBIN 12.9 g/dl (14.0-18.0); MEAN CELL VOLUME 96.2 fL CALC (80.0-100.0); MEAN CORPUSCULAR HGB 28.6 pG CALC (26.0-32.0); MEAN CORPUSCULAR HGB CONC 29.7 g/dL CAL (32.0-36.0); RED BLOOD COUNT 4.51 mill/uL (4.70-6.10); RED CELL DISTRI WIDTH 15.8 % (11.5-15.5)
[2021-03-27 06:14] LABS: ALBUMIN 2.6 g/dL (3.2-5.0); BUN 61 mg/dL (8-23); CARBON DIOXIDE 25 mmol/l (22-30); CHLORIDE 112 mmol/l (95-108); CREATININE 1.9 mg/dL (0.7-1.3); GFR 35 ML/MIN (>=60 (CALC)); GFR FOR AFR.AMER. 42 ML/MIN (>=60 (CALC)); POTASSIUM 5.2 mmol/l (3.5-5.1); SODIUM 142 mmol/l (137-146)
--- NOTE | 2021-03-27 06:55 | NUR ---
AT 0655 ELECTROTYPER REPORTED HR @ 42, HS NURSE REPORTED ELECTROTYPER CALLED X 2 DURING REPORTING HR IN 30'S AND 40'S BUT ASYMPTOMATIC AND RATE RETURNED TO SINUS WITHIN FEW MINUTES, BIAS BINDING FOLDER NOTIFIED THIS AM.
--- NOTE | 2021-03-27 07:30 | NUR ---
SHIFT CHANGE REPORT, PT LETHARGIC BUT ORIENTED, C/O WEAKNESS AND NEEDED MAX ASSIST TO GET OOB, TELE MONITOR IN PLACE, IVF INFUSING, PREPARED FOR TRANSPORT OFF UNIT TO [facility], TAKEN IN BED TO US, WILL CONTINUE TO MONITOR.
[2021-03-27 08:37] VITALS: BP 131/74
--- NOTE | 2021-03-27 09:25 | NUR ---
RETURNED FROM PROCEDURE AND SETTLED BACK IN ROOM, O2 @ 2L VIA NC IN PLACE AND CALL ROONEY IN REACH.
[2021-03-27 11:36] VITALS: BP 135/65
[2021-03-27 15:45] VITALS: BP 137/70
--- NOTE | 2021-03-27 17:20 | NUR ---
[facility] HERE AT THIS TIME RECEIVING PT TO TRANSPORT TO [facility], RECEIVING NURSE WILL CALL BACK FOR REPORT SHE WAS NOT AVAILABLE EARLIER WHEN CALLED.
--- NOTE | 2021-03-27 17:38 | NUR ---
Discharge instructions given. Patient verbalizes understanding of same. Discharged in stable condition via Medical Transport to [facility] with *Other. All belongings sent with pt.
--- NOTE | 2021-03-27 17:50 | NUR ---
REPORT GIVEN TO RECEIVING NURSE MARIANA (RN) AT [facility] AT THIS TIME.
== END 2021-03-27 17:25 | DRG 177 ==
LOC: ED 11:31 → ED-I 17:08 → ED 17:29 → MS2 17:30
PROVIDERS: Family Medicine; Internal Medicine Nephrology; Nurse Practitioner; ADMIT Internal Medicine; ATTEND Internal Medicine
PROC: XW033E5 Introduction of Remdesivir Anti-infective into Peripheral Vein, Percutaneous Approach, New Technology Group 5 (ICD-10-PCS; principal; 2021-03-20)
DX: U07.1 COVID-19 (principal); J12.82 Pneumonia due to coronavirus disease 2019; N17.0 Acute kidney failure with tubular necrosis; J44.0 Chronic obstructive pulmonary disease with (acute) lower respiratory infection; J10.1 Influenza due to other identified influenza virus with other respiratory manifestations; I12.9 Hypertensive chronic kidney disease with stage 1 through stage 4 chronic kidney disease, or unspecified chronic kidney disease; E11.22 Type 2 diabetes mellitus with diabetic chronic kidney disease; N18.30 Chronic kidney disease, stage 3 unspecified; I48.0 Paroxysmal atrial fibrillation; I25.10 Atherosclerotic heart disease of native coronary artery without angina pectoris; E86.9 Volume depletion, unspecified; D63.1 Anemia in chronic kidney disease; R80.9 Proteinuria, unspecified; R47.81 Slurred speech; T40.2X5A Adverse effect of other opioids, initial encounter; R07.81 Pleurodynia; W19.XXXA Unspecified fall, initial encounter; Z95.1 Presence of aortocoronary bypass graft; Z91.81 History of falling; Z85.46 Personal history of malignant neoplasm of prostate; Z85.118 Personal history of other malignant neoplasm of bronchus and lung; Z92.21 Personal history of antineoplastic chemotherapy; Z90.2 Acquired absence of lung [part of]; Z79.4 Long term (current) use of insulin; Z87.891 Personal history of nicotine dependence
CPT/HCPCS: J1650; J1756; J2060; J3475